=== PATIENT | male | born 1975 | race Caucasian/White ===

== ENCOUNTER 2017-03-10 13:45 | Emergency (ER) | payer BC ==
[2017-03-10] MEDS ORDERED: TETANUS/DIPHTHERIA/PERTUSSIS 0.5 ML SYRINGE IM ONE ×2 (13:57→14:10)
[2017-03-10 13:58] VITALS: BP 141/96
--- NOTE | 2017-03-10 13:58 | ED Physician Documentation ---
PD HPI UPPER EXT INJURY - Stated complaint Stated Complaint: LEFT FINGER LAC - History obtained from History obtained from: Patient - History of Present Illness Location: Other (This is a right-handed gentleman who was working on his truck at home and lacerated the dorsum of the left second finger on an exposed bolt just prior to arrival. Tetanus is unknown. No other injuries.) Review of Systems Constitutional: reports: Reviewed and negative Cardiac: reports: Reviewed and negative Respiratory: reports: Reviewed and negative PD PAST MEDICAL HISTORY - Past Medical History Cardiovascular: Hypertension Respiratory: None Neuro: None Endocrine/Autoimmune: None GI: None : None HEENT: None Psych: Anxiety, Bipolar disorder, ADD/ADHD Musculoskeletal: None Derm: None - Past Surgical History Past Surgical History: Yes - Present Medications Home Medications: Ambulatory Orders Medication Instructions Recorded Confirmed Fluvoxamine Maleate 50 mg PO DAILY 09/10/13 02/26/15 Lisinopril [Zestril] 40 mg PO DAILY 09/10/13 03/10/17 lamoTRIgine [LaMICtal] 350 mg PO DAILY 09/10/13 03/10/17 Cholecalciferol (Vitamin D3) 1,000 mg PO DAILY 02/26/15 02/26/15 [Vitamin D] - Allergies Allergies/Adverse Reactions: Allergies Allergy/AdvReac Type Severity Reaction Status Date / Time aripiprazole [From Abilify] AdvReac Unknown Unknown Verified 03/10/17 14:01 bupropion HCl * AdvReac Unknown Unknown Verified 03/10/17 14:01 [From Wellbutrin] lithium [[place]] AdvReac Unknown Unknown Verified 03/10/17 14:01 - Social History Does the pt smoke?: No Smoking Status: Current every day smoker Does the pt drink ETOH?: No Does the pt have substance abuse?: No - Immunizations Immunizations are current?: Yes - POLST Patient has POLST: No PD ED PE NORMAL - Vitals Vital signs reviewed: Yes - General General: Alert and oriented X 3, No acute distress - Extremities Extremities: Other (There is a 2 cm laceration at the level of the PIP on the dorsal surface of the left second finger with intact extensor tendon strength and normal neurovascular function of the tip.) - Neuro Neuro: Alert and oriented X 3, Normal speech - Psych Psych: Normal mood, Normal affect Results - Vitals Vitals: Vital Signs - 24 hr 03/10/17 13:56 Temperature 36.3 C L Heart Rate 81 Respiratory 18 Rate Blood Pressure 141/96 H O2 Saturation 96 Oxygen O2 Source Room air Procedures - Laceration (location) L 2nd finger Length in cm: 2 Wound type: Linear Neurovascular status: Sensory intact, Motor intact, Vascular intact Tendon involvement: Tendon intact. No: Tendon Injury Anesthesia: Lidocaine 1%, With bicarb Wound Preparation: Chlorhexadine, Irrigated copiously NS Skin layer closure: Nylon, Size #-0 - enter number (5-0), Sutures - enter # (8) Other: Patient tolerated well, No complications, Neurovascular intact, Tetanus booster given Complexity: Simple Departure - Departure Disposition: 01 Home, Self Care Clinical Impression: Finger laceration Qualifiers: Encounter type: initial encounter Qualified Code(s): S61.219A - Laceration without foreign body of unspecified finger without damage to nail, initial encounter Condition: Good Record reviewed to determine appropriate education?: Yes Instructions: ED Laceration Hand Comments: Come back for any signs of infection which would include: Redness, swelling, drainage, increased pain, or fevers. Follow-up with your physician in 14 days for suture removal. Your blood pressure was elevated today on check into the emergency department. This does not mean that you have hypertension, it is a common phenomenon to come to the emergency department and have elevated blood pressure. I recommend that she see her primary care physician within the week to have it rechecked when you are feeling better.
[2017-03-10] MEDS ORDERED: BUFFERED LIDOCAINE 10 ML SYRINGE ONE (14:08)
== END 2017-03-10 14:57 | disposition home or self-care (01) ==
LOC: ED 13:45
DX: S61.210A Laceration without foreign body of right index finger without damage to nail, initial encounter (principal); W45.8XXA Other foreign body or object entering through skin, initial encounter; Y93.89 Activity, other specified; Y92.009 Unspecified place in unspecified non-institutional (private) residence as the place of occurrence of the external cause; Z23 Encounter for immunization; I10 Essential (primary) hypertension; F17.200 Nicotine dependence, unspecified, uncomplicated
CPT/HCPCS: 12001; 90471; 99282; 99283

== ENCOUNTER 2017-06-24 18:28 | Emergency (ER) | payer BC ==
[2017-06-24] MEDS ORDERED: ALBUTEROL NEB 2.5 MG/3 ML INH STA (19:21)
--- NOTE | 2017-06-24 19:23 | ED Physician Documentation ---
PD HPI DYSPNEA - Stated complaint Stated Complaint: DIFF BREATHING,DIZZY - Chief complaint Chief Complaint: Resp - History obtained from History obtained from: Patient - History of Present Illness Timing - onset: Other (Sick for about 5 days with a productive cough and shortness of breath that is worse when he is upright and better when laying flat and at rest. There is some chest pain with coughing but no chest pain without coughing. No pedal edema or calf pain. No recent travel or hemoptysis. No fevers. He was seen in another emergency department 4 days ago and given a prescription for Zithromax, no other prescriptions. He has not improved. He says he did receive a chest x-ray at that time which was negative per him.) Review of Systems Ten Systems: 10 systems reviewed and negative Constitutional: denies: Fever, Chills Throat: denies: Sore throat Cardiac: denies: Chest pain / pressure, Pedal edema, Calf pain Respiratory: reports: Dyspnea, Cough GI: denies: Abdominal Pain PD PAST MEDICAL HISTORY - Past Medical History Cardiovascular: Hypertension Respiratory: None Neuro: None Endocrine/Autoimmune: None GI: None : None HEENT: None Psych: Anxiety, Bipolar disorder, ADD/ADHD Musculoskeletal: None Derm: None - Past Surgical History Past Surgical History: Yes - Present Medications Home Medications: Ambulatory Orders Medication Instructions Recorded Confirmed Fluvoxamine Maleate 50 mg PO DAILY 09/10/13 06/24/17 Lisinopril [Zestril] 40 mg PO DAILY 09/10/13 06/24/17 lamoTRIgine [LaMICtal] 350 mg PO DAILY 09/10/13 06/24/17 Cholecalciferol (Vitamin D3) 1,000 mg PO DAILY 02/26/15 02/26/15 [Vitamin D] Albuterol Sulfate [Proventil Hfa 1 - 2 puffs IH Q4H PRN #1 06/24/17 Inhaler] hfa.aer.ad guaiFENesin/CODEINE [Robitussin AC] 5 - 10 ml PO Q6H PRN #120 ml 06/24/17 predniSONE [Deltasone] 60 mg PO DAILY 5 Days tablet 06/24/17 - Allergies Allergies/Adverse Reactions: Allergies Allergy/AdvReac Type Severity Reaction Status Date / Time aripiprazole [From Abili] AdvReac Unknown Unknown Verified 03/10/17 14:01 bupropion HCl * AdvReac Unknown Unknown Verified 03/10/17 14:01 [From Wellbutrin] lithium [[place]] AdvReac Unknown Unknown Verified 03/10/17 14:01 - Social History Does the pt smoke?: No Smoking Status: Never smoker Does the pt drink ETOH?: No Does the pt have substance abuse?: No - Immunizations Immunizations are current?: Yes - POLST Patient has POLST: No PD ED PE NORMAL - Vitals Vital signs reviewed: Yes - General General: Alert and oriented X 3, Other (Occasional cough) - HEENT HEENT: PERRL, EOMI - Neck Neck: Supple, no meningeal sign, No bony TTP - Cardiac Cardiac: RRR, No murmur - Respiratory Respiratory: Other (Mild expiratory wheezes and bibasilar rhonchi, no focal findings) - Abdomen Abdomen: Soft, Non tender - Derm Derm: No rash - Neuro Neuro: Alert and oriented X 3, Normal speech Results - Vitals Vitals: Vital Signs - 24 hr 06/24/17 06/24/17 06/24/17 18:32 19:01 19:40 Temperature 36.2 C L 37.1 C Heart Rate 81 71 70 Respiratory 24 16 16 Rate Blood Pressure 136/98 H 133/94 H O2 Saturation 98 99 Oxygen O2 Source Room air - EKG (time done) 1936 Rate: Rate (enter#) (66) Rhythm: NSR [place]: LAD Intervals: Normal MD QRS: Normal Ischemia: Normal ST segments Computer interpretation: Agree with computer PD MEDICAL DECISION MAKING - ED course ED course: 41-year-old gentleman with bronchitis apparently. No evidence of PE or ID, negative PERC. EKG nonischemic. Feeling much better after the administration of an albuterol neb here, somewhat shaky after that but he said it was worth it to breathe better. Departure - Departure Disposition: 01 Home, Self Care Clinical Impression: Bronchitis Condition: Good Record reviewed to determine appropriate education?: Yes Instructions: ED Bronchitis Asthmatic Prescriptions: Albuterol Sulfate [Proventil Hfa Inhaler] 1 - 2 puffs IH Q4H PRN #1 hfa.aer.ad PRN Reason: Cough guaiFENesin/CODEINE [Robitussin AC] 5 - 10 ml PO Q6H PRN #120 ml PRN Reason: Cough predniSONE [Deltasone] 60 mg PO DAILY 5 Days tablet Comments: Call your doctor to arrange a follow-up appointment, make the next available appointment. In the interim, return anytime if worse or if new symptoms develop. Your blood pressure was elevated today on check into the emergency department. This does not mean that you have hypertension, it is a common phenomenon to come to the emergency department and have elevated blood pressure. I recommend that you see your primary care physician within the week to have it rechecked when you are feeling better.
[2017-06-24] MEDS ORDERED: ALBUTEROL NEB 2.5 MG/3 ML INH ONE (19:45)
[2017-06-24 20:13] VITALS: BP 136/93
== END 2017-06-24 20:14 | disposition home or self-care (01) ==
LOC: ED 18:28
DX: J40 Bronchitis, not specified as acute or chronic (principal); I10 Essential (primary) hypertension
CPT/HCPCS: 93005; 94640; 99283; 99284; J7613

== ENCOUNTER 2018-06-24 02:47 | Emergency (ER) | payer BC, MEDICAID ==
--- NOTE | 2018-06-24 03:10 | ED Physician Documentation ---
History of Present Illness - Stated complaint Stated Complaint: ELEVATED BP - Chief complaint Chief Complaint: Cardiac - History obtained from History obtained from: Patient - History of Present Illness Timing: Today Pain level max: 3 Pain level now: 0 Improved by: nothing Worsened by: nothing - Additonal information Additional information: Patient is a 42-year-old male with a long-standing history of hypertension. Noticed his blood pressure was higher than usual today, 170/110 at home. He states that he feels like there is a vibration in his head. This has occurred since abruptly running out of his SSRI and not been able to get a refill. Also abruptly stopped his nortriptyline 2 days ago. He denies any chest pain or shortness of breath. No vision changes. No focal numbness or weakness. Review of Systems Constitutional: denies: Fever, Chills Eyes: denies: Decreased vision, Photophobia Ears: denies: Ear pain Nose: denies: Rhinorrhea / runny nose, Congestion Respiratory: denies: Cough GI: denies: Nausea, Vomiting, Diarrhea Skin: denies: Rash Neurologic: denies: Headache PD PAST MEDICAL HISTORY - Past Medical History Cardiovascular: Hypertension Respiratory: None Endocrine/Autoimmune: None GI: None : None HEENT: None Psych: Anxiety, Bipolar disorder, ADD/ADHD Musculoskeletal: None Derm: None - Past Surgical History Past Surgical History: Yes - Present Medications Home Medications: Ambulatory Orders Medication Instructions Recorded Confirmed Fluvoxamine Maleate 50 mg PO DAILY 09/10/13 06/24/17 Lisinopril [Zestril] 40 mg PO DAILY 09/10/13 06/24/17 lamoTRIgine [LaMICtal] 350 mg PO DAILY 09/10/13 06/24/17 Cholecalciferol (Vitamin D3) 1,000 mg PO DAILY 02/26/15 02/26/15 [Vitamin D] Albuterol Sulfate [Proventil Hfa 1 - 2 puffs IH Q4H PRN #1 06/24/17 Inhaler] hfa.aer.ad guaiFENesin/CODEINE [Robitussin AC] 5 - 10 ml PO Q6H PRN #120 ml 06/24/17 predniSONE [Deltasone] 60 mg PO DAILY 5 Days tablet 06/24/17 Fluvoxamine Maleate 150 mg PO DAILY #30 tablet 06/24/18 Nortriptyline HCl 50 mg PO DAILY #10 capsule 06/24/18 - Allergies Allergies/Adverse Reactions: Allergies Allergy/AdvReac Type Severity Reaction Status Date / Time aripiprazole [From Abilify] AdvReac Unknown Unknown Verified 06/24/18 03:00 bupropion HCl * AdvReac Unknown Unknown Verified 06/24/18 03:00 [From Wellbutrin] lithium [[place]] AdvReac Unknown Unknown Verified 06/24/18 03:00 - Social History Does the pt smoke?: No Smoking Status: Never smoker Does the pt drink ETOH?: No Does the pt have substance abuse?: No - Immunizations Immunizations are current?: Yes - POLST Patient has POLST: No PD ED PE NORMAL - Vitals Vital signs reviewed: Yes - General General: Alert and oriented X 3, No acute distress - HEENT HEENT: PERRL, Moist mucous membranes - Neck Neck: Supple, no meningeal sign - Cardiac Cardiac: RRR, Strong equal pulses - Respiratory Respiratory: No respiratory distress, Clear bilaterally - Abdomen Abdomen: Soft, Non tender, Non distended - Derm Derm: Warm and dry - Extremities Extremities: No edema, No calf tenderness / cord - Neuro Neuro: Alert and oriented X 3, dining room busser 2-12 intact, No motor deficit, No sensory deficit, Normal speech - Psych Psych: Normal mood, Normal affect Results - Vitals Vitals: Vital Signs - 24 hr 06/24/18 06/24/18 06/24/18 02:57 03:11 03:16 Temperature 37.0 C Heart Rate 75 70 Respiratory 17 17 Rate Blood Pressure 157/105 H 157/109 H O2 Saturation 98 97 Oxygen O2 Source T-piece - EKG (time done) 0302 Rate: Rate (enter#) (72) Rhythm: NSR [place]: Normal Intervals: Normal [place] QRS: Normal Ischemia: Normal ST segments PD MEDICAL DECISION MAKING - ED course Complexity details: reviewed results, considered differential, d/w patient ED course: Patient is a 42-year-old male with chronic hypertension, blood pressure here is not significantly different from his prior ED visits. More likely that the vibrationary feeling in his head is from abrupt withdrawal of his SSRI and the nortriptyline. Given a dose of nortriptyline here, but his SSRI is not stocked in the hospital. Will rx both for home and follow up with his PCP. Patient counseled regarding signs and symptoms for which I believe and urgent re- evaluation would be necessary. Patient with good understanding of and agreement to plan and is comfortable going home at this time This document was made in part using voice recognition software. While efforts are made to proofread this document, sound alike and grammatical errors may occur. Departure - Departure Disposition: Home, Self Care Clinical Impression: Medication refill Hypertension Qualifiers: Hypertension type: unspecified Qualified Code(s): I10 - Essential (primary) hypertension Condition: Good Instructions: ED HTN Established Follow-Up: Noel Kaufman MD [Primary Care Provider] - Within 1 week Prescriptions: Fluvoxamine Maleate 150 mg PO DAILY #30 tablet Nortriptyline HCl 50 mg PO DAILY #10 capsule Comments: Your prescriptions were sent to [facility]. Follow-up with your doctor for adjustment of your blood pressure medications. Return if you worsen.
[2018-06-24] MEDS: NORTRIPTYLINE 25 MG CAPSULE PO STA (03:18)
[2018-06-24 03:38] VITALS: BP 141/109
== END 2018-06-24 03:40 | disposition home or self-care (01) ==
LOC: ED 02:47
DX: I10 Essential (primary) hypertension (principal)
CPT/HCPCS: 93005; 99283

== ENCOUNTER 2018-09-07 20:16 | Emergency (ER) | payer MEDICAID ==
[2018-09-07 20:22] VITALS: BP 147/103
[2018-09-07] MEDS ORDERED: ACETAMINOPHEN 325 MG TABLET PO STA (20:33)
--- NOTE | 2018-09-07 20:35 | ED Physician Documentation ---
PD HPI URI - Stated complaint Stated Complaint: FLU SYMPTOMS - Chief complaint Chief Complaint: Resp - History obtained from History obtained from: Patient - History of Present Illness Timing - onset: Yesterday Timing details: Gradual onset Associated symptoms: Dry cough, Other (myalgias, fatigue) Contributing factors: Sick contact (Son is sick with similar symptoms.) - Treatment prior to arrival Treatment prior to arrival: Mucinex and DayQuil without relief. - Additional information Additional information: The patient is a 43-year-old male who presents with cough that started yesterday and has become much worse today. He complains of associated fatigue and myalgias. He has associated dyspnea and mild headache. He denies fever, chest pain, sore throat, or GI symptoms. He has taken Mucinex and DayQuil without relief. His son has been sick with similar symptoms. Review of Systems Constitutional: reports: Myalgias, Fatigue. denies: Fever Eyes: denies: Irritation Ears: denies: Ear pain Nose: reports: Sinus pressure / pain Throat: denies: Sore throat Cardiac: denies: Chest pain / pressure Respiratory: reports: Dyspnea, Cough GI: denies: Abdominal Pain, Nausea, Vomiting : denies: Dysuria Skin: denies: Rash Musculoskeletal: denies: Extremity pain Neurologic: reports: Headache (mild) PD PAST MEDICAL HISTORY - Past Medical History Past Medical History: Yes Cardiovascular: Hypertension Respiratory: None Neuro: None Endocrine/Autoimmune: None GI: None : None HEENT: None Psych: Anxiety, Bipolar disorder, ADD/ADHD Musculoskeletal: None Derm: None - Past Surgical History Past Surgical History: Yes - Present Medications Home Medications: Ambulatory Orders Medication Instructions Recorded Confirmed Lisinopril [Zestril] 40 mg PO DAILY 09/10/13 09/07/18 lamoTRIgine [LaMICtal] 350 mg PO DAILY 09/10/13 09/07/18 Cholecalciferol (Vitamin D3) 1,000 mg PO DAILY 02/26/15 09/07/18 [Vitamin D] Fluvoxamine Maleate 150 mg PO DAILY #30 tablet 06/24/18 09/07/18 Nortriptyline HCl 50 mg PO DAILY #10 capsule 06/24/18 09/07/18 Benzonatate [Tessalon Perle] 100 - 200 mg PO TID PRN #30 capsule 09/07/18 Metoprolol Succinate 50 mg PO DAILY 09/07/18 09/07/18 - Allergies Allergies/Adverse Reactions: Allergies Allergy/AdvReac Type Severity Reaction Status Date / Time aripiprazole [From Abilify] AdvReac Unknown Unknown Verified 09/07/18 20:22 bupropion HCl * AdvReac Unknown Unknown Verified 09/07/18 20:22 [From Wellbutrin] lithium [[place]] AdvReac Unknown Unknown Verified 09/07/18 20:22 gabapentin AdvReac Unknown Verified 09/07/18 20:22 - Social History Does the pt smoke?: No Smoking Status: Never smoker Does the pt drink ETOH?: No Does the pt have substance abuse?: No - Immunizations Immunizations are current?: Yes - POLST Patient has POLST: No PD ED PE NORMAL - Vitals Vital signs reviewed: Yes (hypertensive) - General General: Alert and oriented X 3, Well developed/nourished - HEENT HEENT: Atraumatic, Ears normal, Pharynx benign - Neck Neck: No adenopathy, No JVD - Cardiac Cardiac: RRR, No murmur - Respiratory Respiratory: Clear bilaterally - Abdomen Abdomen: Soft, Non tender - Back Back: No CVA TTP - Derm Derm: No rash - Extremities Extremities: No edema, No calf tenderness / cord - Neuro Neuro: Alert and oriented X 3, No motor deficit, Normal speech Results - Vitals Vitals: Vital Signs - 24 hr 09/07/18 20:17 Temperature 36.2 C L Heart Rate 100 Respiratory 17 Rate Blood Pressure 147/103 H O2 Saturation 98 Oxygen O2 Source Room air - Labs Labs: Laboratory Tests 09/07/18 20:33 Influenza A (Rapid) Negative Influenza B (Rapid) Negative PD MEDICAL DECISION MAKING - ED course Complexity details: reviewed results, re-evaluated patient, considered differ ential, d/w patient ED course: The patient's presentation is most consistent with viral upper respiratory infection. His clinical presentation does not suggest meningitis, pneumonitis, otitis media, or acute pharyngitis. Influenza swab is negative. Treatment in the emergency department included Tylenol 650 mg orally, and Tessalon, 100 mg orally. I discussed with him the expected course of illness, symptomatic treatment and outpatient follow-up, as well as potentially worrisome signs or symptoms that should prompt reevaluation in the emergency department. Departure - Departure Disposition: Home, Self Care Clinical Impression: Viral URI with cough Condition: Stable Instructions: ED Upper Resp Infec No Abx Tx Follow-Up: Noel Kaufman MD [Primary Care Provider] - Prescriptions: Benzonatate [Tessalon Perle] 100 - 200 mg PO TID PRN #30 capsule PRN Reason: Cough Comments: Your symptoms are most consistent with a viral upper respiratory infection. Antibiotics are not clinically indicated for this type of viral infection. Treatment should be geared toward managing symptoms: Drink plenty of fluids. Use Tylenol or ibuprofen as needed for fever or discomfort. Wash your hands frequently, and cover your cough. Follow up with your primary physician, or return to the emergency department, if not improving within 1-2 weeks. Return to the emergency department if you develop increasing difficulty breathing, or otherwise worsening symptoms. Discharge Date/Time: 09/07/18 21:00
[2018-09-07] MEDS ORDERED: BENZONATATE 100 MG CAPSULE PO STA (20:53)
== END 2018-09-07 21:00 | disposition home or self-care (01) ==
LOC: ED 20:16
DX: J06.9 Acute upper respiratory infection, unspecified (principal); B34.9 Viral infection, unspecified; I10 Essential (primary) hypertension
CPT/HCPCS: 87275; 87276; 99283; A9270

== ENCOUNTER 2020-12-24 19:01 | Emergency (ER) | payer MEDICAID ==
--- OUTSIDE RECORDS SUMMARY | 2020-12-24 19:04 | EXTERNAL MEDICAL SUMMARY RPT | Continuity of Care Document ---
:1975 Demographics Phone Unavailable Preferred Language Unknown Marital Status Unknown Hindu Affiliation Unknown Race Unknown Ethnic Group Unknown Author Organization [facility] [address] [place] [address] Phone Problems date description facility [id number] [facility] [id number] [facility]
--- OUTSIDE RECORDS SUMMARY | 2020-12-24 19:32 | EXTERNAL MEDICAL SUMMARY RPT | Continuity of Care Document ---
:1975 Demographics Phone Unavailable Preferred Language Unknown Marital Status Unknown Anglican Affiliation Unknown Race Unknown Ethnic Group Unknown Author Organization [facility] [address] [place] [address] Phone Problems date description facility [id number] [facility] [id number] [facility]
--- NOTE | 2020-12-24 20:02 | XRAY Report ---
PROCEDURE: Chest 2 View X-Ray INDICATIONS: cough TECHNIQUE: 2 view(s) of the chest. COMPARISON: 02/26/2015. FINDINGS: Surgical changes and devices: None. Lungs and pleura: No pleural effusions or pneumothorax. Lungs are clear. Mediastinum: Mediastinal contours are normal. Heart size is normal. Bones and chest wall: No suspicious bony abnormalities. Soft tissues appear unremarkable. IMPRESSION: Chest without cardiopulmonary abnormalities. No focal airspace disease. Reviewed by: Barry Childers MD on 12/24/2020 8:01 PM PDT Approved by: Barry Childers MD on 12/24/2020 8:01 PM PDT Station ID: [id number]
[2020-12-24] MEDS ORDERED: guaiFENesin/CODEINE 5 ML UDC PO STA (20:07)
--- NOTE | 2020-12-24 20:09 | ED Physician Documentation ---
PD HPI URI - Stated complaint Stated Complaint: FEVER - Chief complaint Chief Complaint: Resp - History obtained from History obtained from: Patient (2 days with minimally productive hacking cough, burning chest. Had a temperature of 100.8 just prior to arrival. Denies history of tobacco use or lung or heart problems.) Review of Systems Constitutional: reports: Fever. denies: Myalgias Nose: denies: Rhinorrhea / runny nose Throat: denies: Sore throat Respiratory: denies: Dyspnea PD PAST MEDICAL HISTORY - Past Medical History Past Medical History: Yes Cardiovascular: Hypertension Respiratory: Asthma Neuro: None Endocrine/Autoimmune: None GI: None : None HEENT: None Psych: Anxiety, Bipolar disorder, ADD/ADHD Musculoskeletal: None Derm: None - Past Surgical History Past Surgical History: Yes - Present Medications Home Medications: Ambulatory Orders Medication Instructions Recorded Confirmed lamoTRIgine [LaMICtal] 350 mg PO DAILY 09/10/13 12/24/20 lisinopriL [Zestril] 40 mg PO DAILY 09/10/13 12/24/20 Cholecalciferol (Vitamin D3) 1,000 mg PO DAILY 02/26/15 12/24/20 [Vitamin D] Fluvoxamine Maleate 150 mg PO DAILY #30 tablet 06/24/18 12/24/20 Nortriptyline HCl 50 mg PO DAILY #10 capsule 06/24/18 12/24/20 Metoprolol Succinate 50 mg PO DAILY 09/07/18 12/24/20 Albuterol Sulf [Ventolin Hfa 1 - 2 puffs INH Q4HR PRN #1 inhaler 12/24/20 Inhaler] guaiFENesin/CODEINE [Robitussin AC] 5 - 10 ml PO Q6H PRN #120 ml 12/24/20 - Allergies Allergies/Adverse Reactions: Allergies Allergy/AdvReac Type Severity Reaction Status Date / Time aripiprazole [From Abilify] AdvReac Unknown Unknown Verified 12/24/20 19:23 bupropion HCl * AdvReac Unknown Unknown Verified 12/24/20 19:23 [From Wellbutrin] lithium [[place]] AdvReac Unknown Unknown Verified 12/24/20 19:23 gabapentin AdvReac Unknown Verified 12/24/20 19:23 - Social History Does the pt smoke?: No Smoking Status: Never smoker Does the pt drink ETOH?: No Does the pt have substance abuse?: No - Immunizations Immunizations are current?: Yes - POLST Patient has POLST: No PD ED PE NORMAL - Vitals Vital signs reviewed: Yes - General General: Alert and oriented X 3 (Frequent bronchitic coughing) - HEENT HEENT: Pharynx benign - Respiratory Respiratory: No respiratory distress, Clear bilaterally - Neuro Neuro: Alert and oriented X 3, Normal speech Results - Vitals Vitals: Vital Signs - 24 hr 12/24/20 19:20 Temperature 37.5 C Heart Rate 71 Respiratory 20 Rate Blood Pressure 146/82 H O2 Saturation 98 Oxygen O2 Source Room air - Rads (name of study) 2 view chest x-ray Radiology: EMP read contemporaneously (Unremarkable) Departure - Departure Disposition: 01 Home, Self Care Clinical Impression: Viral bronchitis Condition: Good Record reviewed to determine appropriate education?: Yes Instructions: ED Viral Syndrome Prescriptions: Albuterol Sulf [Ventolin Hfa Inhaler] 1 - 2 puffs INH Q4HR PRN #1 inhaler PRN Reason: Shortness Of Air/Wheezing guaiFENesin/CODEINE [Robitussin AC] 5 - 10 ml PO Q6H PRN #120 ml PRN Reason: Cough Comments: No evidence of bacterial illness such as bacterial bronchitis or pneumonia. Chest x-ray is clear. Illness should resolve on its own without specific treatments but the albuterol and codeine should help with your symptoms. Return for new or worsening symptoms. Follow-up with your doctor next week for recheck.
[2020-12-24 20:20] VITALS: BP 120/90
== END 2020-12-24 20:15 | disposition home or self-care (01) ==
LOC: ED 19:01
DX: J20.8 Acute bronchitis due to other specified organisms (principal); I10 Essential (primary) hypertension
CPT/HCPCS: 71046; 99283; A9270

== ENCOUNTER 2021-12-02 18:35 | Emergency (ER) | payer MEDICAID ==
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
--- NOTE | 2021-12-02 19:57 | CT Report ---
PROCEDURE: HEAD WO INDICATIONS: head inj TECHNIQUE: Noncontrast 4.5 mm thick angled axial sections acquired from the foramen magnum to the vertex. For r adiation dose reduction, the following was used: automated exposure control, adjustment of mA and/or kV according to patient size. COMPARISON: None. FINDINGS: Image quality: Excellent. CSF spaces: Basal cisterns are patent. No extra-axial fluid collections. Ventricles are normal in size and shape. Brain: No midline shift. No intracranial masses or hemorrhage. Tyson-white matter interface is norm al. Skull and face: Calvarium and visualized facial bones are intact, without suspicious lesions. Sinuses: Visualized sinuses demonstrate mild pansinus mucosal thickening most prominent in the ethmo id air cells. IMPRESSION: 1. No acute intracranial process. Reviewed by: Lia Prasad MD on 12/02/2021 7:55 PM PDT Approved by: Lia Prasad MD on 12/02/2021 7:55 PM PDT Station ID: [id number]
--- NOTE | 2021-12-02 19:58 | CT Report ---
PROCEDURE: CERVICAL SPINE WO INDICATIONS: head inj TECHNIQUE: Noncontrast 3 mm thick sections acquired from the skull base to the T4 level. Sagittal and coronal r eformats were then constructed. For radiation dose reduction, the following was used: automated exp osure control, adjustment of mA and/or kV according to patient size. COMPARISON: None. FINDINGS: Image quality: Excellent. Bones: No fractures or dislocations. Visualized superior ribs are intact. Soft tissues: Prevertebral soft tissues are normal in thickness. No paravertebral hematomas. No ap ical pneumothoraces. IMPRESSION: Degenerative changes without visualized fracture. Reviewed by: Lia Prasad MD on 12/02/2021 7:57 PM PDT Approved by: Lia Prasad MD on 12/02/2021 7:57 PM PDT Station ID: [id number]
[2021-12-02 20:17] VITALS: BP 147/102
== END 2021-12-02 20:21 | disposition home or self-care (01) ==
LOC: ED 18:35
DX: S09.90XA Unspecified injury of head, initial encounter (principal); S16.1XXA Strain of muscle, fascia and tendon at neck level, initial encounter; W18.31XA Fall on same level due to stepping on an object, initial encounter; Y93.55 Activity, bike riding; I10 Essential (primary) hypertension
CPT/HCPCS: 99282; 99284

== ENCOUNTER 2022-05-10 23:17 | Emergency (ER) | payer OTHER, MEDICAID ==
[2022-05-10 23:36] VITALS: BP 137/97
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
== END 2022-05-11 01:24 | disposition home or self-care (01) ==
LOC: ED 23:17
DX: S83.92XA Sprain of unspecified site of left knee, initial encounter (principal); V29.99XA Rider (driver) (passenger) of other motorcycle injured in unspecified traffic accident, initial encounter; I10 Essential (primary) hypertension
CPT/HCPCS: 99282; 99285

== ENCOUNTER 2022-09-24 15:00 | Outpatient (CLI) | payer MEDICAID | END 2022-09-24 23:59 | disposition critical access hospital (66) | LOC: EMS 15:00 | DX: R51.9 Headache, unspecified (principal); H53.8 Other visual disturbances; I10 Essential (primary) hypertension; R05.9 Cough, unspecified | CPT/HCPCS: A0425; A0429 ==

== ENCOUNTER 2022-09-24 15:48 | Emergency (ER) | payer MEDICAID ==
--- NOTE | 2022-09-24 16:32 | XRAY Report ---
PROCEDURE: Chest 2 View X-Ray INDICATIONS: wet cough with soa TECHNIQUE: 2 views of the chest were acquired. COMPARISON: 12/24/2020 FINDINGS: Surgical changes and devices: None. Lungs and pleura: No pleural effusions or pneumothorax. Lungs are clear. Mediastinum: Mediastinal contours are normal. Heart size is normal. Bones and chest wall: No suspicious bony abnormalities. Soft tissues appear unremarkable. IMPRESSION: No acute cardiopulmonary process demonstrated radiographically. No significant change from 12/24/2020 exam. Reviewed by: Sabino Ledesma MD on 09/24/2022 4:31 PM PST Approved by: Sabino Ledesma MD on 09/24/2022 4:31 PM PST Station ID: [id number]
[2022-09-24 19:45] LABS: MUDS CUTOFF CONCENTRATIONS CUTOFF CONC BELOW:
--- NOTE | 2022-09-24 19:52 | ED Physician Documentation ---
History of Present Illness - Stated complaint Stated Complaint: ANXIETY - Chief complaint Chief Complaint: General - History obtained from History obtained from: Patient - History of Present Illness Pain level max: 6 Pain level now: 4 - Additonal information Additional information: Patient is a 47-year-old male with multiple complaints. He states that he has been feeling generally unwell for the past couple of weeks since he quit using marijuana. He states he has had a cough, congestion, occasional dyspnea. Today he noticed his blood pressure was elevated at home, 190/110 systolic. No chest pain. No current shortness of breath. Occasional nausea. No vomiting. No diarrhea. No constipation. Has had rhinorrhea and congestion. He has felt feverish at times. He has had occasional chills. Review of Systems Constitutional: reports: Chills GI: denies: Vomiting, Constipation, Diarrhea Skin: denies: Rash PD PAST MEDICAL HISTORY - Past Medical History Past Medical History: Yes Cardiovascular: Hypertension Respiratory: Asthma Neuro: None Endocrine/Autoimmune: None GI: None : Benign prostate hypertrophy HEENT: Other Psych: Anxiety, Bipolar disorder, ADD/ADHD, Obsessive compulsive disorder Musculoskeletal: Other Derm: None - Past Surgical History Past Surgical History: Yes General: Other Ortho: Carpal Tunnel surgery - Present Medications Home Medications: Ambulatory Orders Medication Instructions Recorded Confirmed lamoTRIgine [LaMICtal] 350 mg PO DAILY 09/10/13 09/24/22 lisinopriL [Zestril] 40 mg PO DAILY 09/10/13 09/24/22 Fluvoxamine Maleate 150 mg PO DAILY #30 tablet 06/24/18 09/24/22 Albuterol Sulf [Ventolin Hfa 1 - 2 puffs INH Q4HR PRN #1 inhaler 12/24/20 05/10/22 Inhaler] Propranolol ER [Inderal LA] 80 mg PO DAILY 12/02/21 09/24/22 Tamsulosin [Flomax] 0.4 mg PO DAILY 12/02/21 09/24/22 - Allergies Allergies/Adverse Reactions: Allergies Allergy/AdvReac Type Severity Reaction Status Date / Time aripiprazole [From Abilify] AdvReac Unknown Unknown Verified 09/24/22 16:03 bupropion HCl * AdvReac Unknown Unknown Verified 09/24/22 16:03 [From Wellbutrin] lithium [[place]] AdvReac Unknown Unknown Verified 09/24/22 16:03 gabapentin AdvReac Unknown Verified 09/24/22 16:03 - Social History Does the pt smoke?: No Smoking Status: Former smoker Does the pt drink ETOH?: No Does the pt have substance abuse?: Yes Substance Use and Type: Marijuana - Immunizations Immunizations are current?: Yes - POLST Patient has POLST: No PD ED PE NORMAL - Vitals Vital signs reviewed: Yes - General General: Alert and oriented X 3, No acute distress - HEENT HEENT: PERRL, Moist mucous membranes - Neck Neck: Supple, no meningeal sign - Cardiac Cardiac: RRR, Strong equal pulses - Respiratory Respiratory: No respiratory distress, Clear bilaterally - Abdomen Abdomen: Soft, Non tender, Non distended - Derm Derm: Warm and dry - Extremities Extremities: No edema, No calf tenderness / cord - Neuro Neuro: Alert and oriented X 3 - Psych Psych: Normal mood, Normal affect Results - Vitals Vitals: Vital Signs - 24 hr 09/24/22 09/24/22 09/24/22 15:55 18:41 20:00 Temperature 36.9 C Heart Rate 60 62 58 L Respiratory 20 15 14 Rate Blood Pressure 152/95 H 155/96 H 152/87 H O2 Saturation 98 100 100 09/24/22 21:25 Temperature 36.8 C Heart Rate 69 Respiratory 18 Rate Blood Pressure 152/87 H O2 Saturation 100 Oxygen O2 Source Room air - EKG (time done) 2033 Rate: Rate (enter#) (56) Rhythm: NSR [place]: Normal Intervals: Normal [place] QRS: Normal Ischemia: Normal ST segments - Labs Labs: Laboratory Tests 09/24/22 09/24/22 09/24/22 19:36 19:40 19:55 WBC 9.3 RBC 5.00 Hgb 15.0 Hct 45.7 MCV 91.4 MCH 30.0 MCHC 32.8 RDW 12.6 Plt Count 256 MPV 9.3 Neut # (Auto) 5.2 Lymph # (Auto) 2.8 [place] # (Auto) 0.7 Eos # (Auto) 0.4 Baso # (Auto) 0.1 Absolute Nucleated RBC 0.00 Nucleated RBC % 0.0 Sodium Potassium Chloride Carbon Dioxide Anion Gap BUN Creatinine Estimated GFR (MDRD) Glucose Calcium Total Bilirubin AST ALT Alkaline Phosphatase Troponin I High Sens Total Protein Albumin Globulin Albumin/Globulin Ratio Lipase Nasal Adenovirus (PCR) NOT DETECTED Nasal B. parapertussis DNA (PCR) NOT DETECTED Nasal Coronavir 229E PCR NOT DETECTED Nasal Coronavir HKU1 PCR NOT DETECTED Nasal Coronavir NL63 PCR NOT DETECTED Nasal Coronavir OC43 PCR NOT DETECTED Nasal Enterovir/Rhinovir PCR NOT DETECTED Nasal Influenza B PCR NOT DETECTED Nasal Influenza A PCR NOT DETECTED Nasal Parainfluen 1 PCR NOT DETECTED Nasal Parainfluen 2 PCR NOT DETECTED Nasal Parainfluen 3 PCR NOT DETECTED Nasal Parainfluen 4 PCR NOT DETECTED Nasal RSV (PCR) NOT DETECTED Nasal B.pertussis DNA PCR NOT DETECTED Nasal C.pneumoniae (PCR) NOT DETECTED Tato Human Metapneumo PCR NOT DETECTED Nasal M.pneumoniae (PCR) NOT DETECTED Nasal SARS-CoV-2 (PCR) NOT DETECTED Urine Opiates Screen NEGATIVE Ur Oxycodone Screen NEGATIVE Urine Methadone Screen NEGATIVE Ur Propoxyphene Screen NEGATIVE Ur Barbiturates Screen NEGATIVE Ur Tricyclics Screen NEGATIVE Ur Phencyclidine Scrn NEGATIVE Ur Amphetamine Screen NEGATIVE U Methamphetamines Scrn NEGATIVE U Benzodiazepines Scrn NEGATIVE Urine Cocaine Screen NEGATIVE U Cannabinoids Screen POSITIVE H 09/24/22 09/24/22 19:55 19:55 WBC RBC Hgb Hct MCV MCH MCHC RDW Plt Count MPV Neut # (Auto) Lymph # (Auto) [place] # (Auto) Eos # (Auto) Baso # (Auto) Absolute Nucleated RBC Nucleated RBC % Sodium 138 Potassium 3.7 Chloride 101 Carbon Dioxide 26 Anion Gap 11.0 BUN 15 Creatinine 0.9 Estimated GFR (MDRD) 90 Glucose 97 Calcium 10.5 H Total Bilirubin 0.5 AST 20 ALT 28 Alkaline Phosphatase 67 Troponin I High Sens 5.3 Total Protein 7.9 Albumin 3.8 Globulin 4.1 Albumin/Globulin Ratio 0.9 L Lipase 127 H Nasal Adenovirus (PCR) Nasal B. parapertussis DNA (PCR) Nasal Coronavir 229E PCR Nasal Coronavir HKU1 PCR Nasal Coronavir NL63 PCR Nasal Coronavir OC43 PCR Nasal Enterovir/Rhinovir PCR Nasal Influenza B PCR Nasal Influenza A PCR Nasal Parainfluen 1 PCR Nasal Parainfluen 2 PCR Nasal Parainfluen 3 PCR Nasal Parainfluen 4 PCR Nasal RSV (PCR) Nasal B.pertussis DNA PCR Nasal C.pneumoniae (PCR) Tato Human Metapneumo PCR Nasal M.pneumoniae (PCR) Nasal SARS-CoV-2 (PCR) Urine Opiates Screen Ur Oxycodone Screen Urine Methadone Screen Ur Propoxyphene Screen Ur Barbiturates Screen Ur Tricyclics Screen Ur Phencyclidine Scrn Ur Amphetamine Screen U Methamphetamines Scrn U Benzodiazepines Scrn Urine Cocaine Screen U Cannabinoids Screen PD Medical Decision Making - ED course Complexity details: reviewed results, re-evaluated patient, considered differential, d/w patient ED course: Unclear etiology of the patient's symptoms. CBC, ER abdominal panel, respiratory PCR and toxicology screens are negative other than positive for cannabinoids and a mildly elevated lipase. He is on lisinopril and this may be causing the lipase elevation. No abdominal pain or tenderness currently. Tolerating p.o. without difficulty. Patient has a history of hypertension and will continue his medications at home. We will have him follow-up with his doctor for further care. Patient counseled regarding signs and symptoms for which I believe and urgent re-evaluation would be necessary. Patient with good understanding of and agreement to plan and is comfortable going home at this time This document was made in part using voice recognition software. While efforts are made to proofread this document, sound alike and grammatical errors may occur. Departure - Departure Disposition: 01 Home, Self Care Clinical Impression: Hypertension Qualifiers: Hypertension type: unspecified Qualified Code(s): I10 - Essential (primary) hypertension Condition: Good Instructions: ED HTN Established Follow-Up: Your,doctor in 1 week [Other] Comments: You do have a mild increase in your lipase which is a marker of inflammation of your pancreas. If your symptoms continue to worsen, your doctor may want to change you from lisinopril as this can be a cause of pancreatitis. The elevation of your enzyme level is not quite to the level of pancreatitis yet, return for worsening pain, vomiting, fevers or any other new or worrisome changes. Discharge Date/Time: 09/24/22 21:26
[2022-09-24 20:02] LABS: AMPHETAMINE SCREEN,URINE NEGATIVE (NEGATIVE); BARBITURATE SCREEN,UR NEGATIVE (NEGATIVE); BENZODIAZEPINES SCREEN, URINE NEGATIVE (NEGATIVE); COCAINE SCREEN URINE NEGATIVE (NEGATIVE); METHADONE SCREEN, URINE NEGATIVE (NEGATIVE); METHAMPHETAMINES SCREEN, URINE NEGATIVE (NEGATIVE); OPIATE SCREEN, URINE NEGATIVE (NEGATIVE); OXYCODONE SCREEN, URINE NEGATIVE (NEGATIVE); PROPOXYPHENE SCREEN, URINE NEGATIVE (NEGATIVE); THC CANNABINOID SCREEN, URINE POSITIVE (NEGATIVE); TRICYCLIC ANTIDEPRESSANT,URINE NEGATIVE (NEGATIVE)
[2022-09-24 20:04] LABS: BASOPHILS # (AUTO) 0.1 10^3/uL (0.0-0.1); BASOPHILS % (AUTO) 0.8 %; EOSINOPHILS # (AUTO) 0.4 10^3/uL (0.0-0.7); EOSINOPHILS % (AUTO) 4.5 %; HCT - HEMATOCRIT 45.7 % (42.0-52.0); LYMPHOCYTES # (AUTO) 2.8 10^3/uL (1.5-3.5); LYMPHOCYTES % (AUTO) 29.8 %; MEAN CORPUSCULAR HGB CONC 32.8 g/dL (32.0-36.0); MEAN CORPUSCULAR VOLUME 91.4 fL (80.0-94.0); MEAN PLATELET VOLUME 9.3 fL (7.4-11.4); MONOCYTES # (AUTO) 0.7 10^3/uL (0.0-1.0); MONOCYTES % (AUTO) 7.8 %; NEUTROPHILS # (AUTO) 5.2 10^3/uL (1.5-6.6); NEUTROPHILS % (AUTO) 56.7 %; PLT - PLATELET COUNT 256 10^3/uL (130-450); RED CELL DISTRIBUTION WIDTH 12.6 % (12.0-15.0); WHITE BLOOD COUNT 9.3 x10^3/uL (4.8-10.8)
[2022-09-24 20:14] VITALS: BP 152/87
[2022-09-24 20:14] LABS: ALBUMIN 3.8 g/dL (3.2-5.5); ALBUMIN/GLOBULIN RATIO 0.9 (1.0-2.2); BILIRUBIN,TOTAL 0.5 mg/dL (0.2-1.0); CALCIUM 10.5 mg/dL (8.5-10.3); CREATININE 0.9 mg/dL (0.6-1.2); POTASSIUM 3.7 mmol/L (3.5-5.0); TOTAL PROTEIN 7.9 g/dL (6.7-8.2)
[2022-09-24 20:41] LABS: B. PARAPERTUSSIS- RESP PCR PAN NOT DETECTED; B. PERTUSSIS- RESP PCR PANEL NOT DETECTED; C. PNEUMONIAE- RESP PCR PANEL NOT DETECTED; CORONAVIRUS 229E-RESP PCR NOT DETECTED; CORONAVIRUS HKU1-RESP PCR NOT DETECTED; CORONAVIRUS NL63-RESP PCR NOT DETECTED; CORONAVIRUS OC43-RESP PCR NOT DETECTED; HUMAN METAPNEUMOVIRUS NOT DETECTED; INFLUENZA A- RESP PCR PANEL NOT DETECTED; INFLUENZA B - RESP PCR PANEL NOT DETECTED; M. PNEUMONIAE- RESP PCR PANEL NOT DETECTED; PARAINFLUENZA VIRUS 1 NOT DETECTED; PARAINFLUENZA VIRUS 2 NOT DETECTED; PARAINFLUENZA VIRUS 3 NOT DETECTED; PARAINFLUENZA VIRUS 4 NOT DETECTED; RHINOVIRUS/ENTEROVIRUS NOT DETECTED; RSV- RESP PCR PANEL NOT DETECTED; SARS-CoV-2 -RESP PCR PANEL NOT DETECTED
== END 2022-09-24 21:26 | disposition home or self-care (01) ==
LOC: EDUNIT# → ED 15:48
DX: I10 Essential (primary) hypertension (principal); Z79.899 Other long term (current) drug therapy; Z87.891 Personal history of nicotine dependence; Z79.51 Long term (current) use of inhaled steroids; Z20.822 Contact with and (suspected) exposure to COVID-19
CPT/HCPCS: 36415; 80053; 80306; 83690; 84484; 85025; 87633; 93005; 99284

== ENCOUNTER 2022-11-15 09:28 | Emergency (ER) | payer MEDICAID ==
[2022-11-15 10:04] LABS: MUDS CUTOFF CONCENTRATIONS CUTOFF CONC BELOW:
[2022-11-15 10:05] LABS: BILIRUBIN,URINE NEGATIVE (NEGATIVE); GLUCOSE, URINE (UA) NEGATIVE (NEGATIVE); KETONES,URINE (UA) NEGATIVE (NEGATIVE); LEUKOCYTE ESTERASE, URINE NEGATIVE (NEGATIVE); NITRITE,URINE NEGATIVE (NEGATIVE); OCCULT BLOOD,URINE NEGATIVE (NEGATIVE); PROTEIN,URINE NEGATIVE (NEGATIVE); UROBILINOGEN,URINE 0.2 (NORMAL) E.U./dL (NORMAL)
[2022-11-15 10:07] LABS: CLARITY,URINE CLEAR (CLEAR)
[2022-11-15 10:14] LABS: BENZODIAZEPINES SCREEN, URINE POSITIVE (NEGATIVE); THC CANNABINOID SCREEN, URINE POSITIVE (NEGATIVE)
[2022-11-15 10:15] LABS: AMPHETAMINE SCREEN,URINE NEGATIVE (NEGATIVE); BARBITURATE SCREEN,UR NEGATIVE (NEGATIVE); COCAINE SCREEN URINE NEGATIVE (NEGATIVE); METHADONE SCREEN, URINE NEGATIVE (NEGATIVE); METHAMPHETAMINES SCREEN, URINE NEGATIVE (NEGATIVE); OPIATE SCREEN, URINE NEGATIVE (NEGATIVE); OXYCODONE SCREEN, URINE NEGATIVE (NEGATIVE); PROPOXYPHENE SCREEN, URINE NEGATIVE (NEGATIVE); TRICYCLIC ANTIDEPRESSANT,URINE NEGATIVE (NEGATIVE)
[2022-11-15 10:17] LABS: BASOPHILS % (AUTO) 0.5 %; EOSINOPHILS # (AUTO) 0.4 10^3/uL (0.0-0.7); HCT - HEMATOCRIT 42.2 % (42.0-52.0); HGB - HEMOGLOBIN 14.2 g/dL (14.0-18.0); LYMPHOCYTES # (AUTO) 1.6 10^3/uL (1.5-3.5); LYMPHOCYTES % (AUTO) 22.1 %; MEAN CORPUSCULAR HEMOGLOBIN 30.8 pg (27.0-31.0); MEAN CORPUSCULAR HGB CONC 33.6 g/dL (32.0-36.0); MEAN CORPUSCULAR VOLUME 91.5 fL (80.0-94.0); MONOCYTES # (AUTO) 0.6 10^3/uL (0.0-1.0); MONOCYTES % (AUTO) 7.8 %; NEUTROPHILS # (AUTO) 4.7 10^3/uL (1.5-6.6); NEUTROPHILS % (AUTO) 64.3 %; PLT - PLATELET COUNT 211 10^3/uL (130-450); RED BLOOD COUNT 4.61 10^6/uL (4.70-6.10); RED CELL DISTRIBUTION WIDTH 12.7 % (12.0-15.0); WHITE BLOOD COUNT 7.3 x10^3/uL (4.8-10.8)
--- NOTE | 2022-11-15 10:29 | ED Physician Documentation ---
PD HPI MHE - Stated complaint Stated Complaint: MHE - Chief complaint Chief Complaint: MHE - History obtained from History obtained from: Patient - History of Present Illness Primary symptom: Self harm - cut, Psychosis, Manic Timing - onset: How many days ago (5) Contributing factors: Work, Off meds (restarted 2 d ago) Similar symptoms before: Diagnosis (bipolar) Recently seen: Other (seen in urgent care to restart medications) - Additional information Additional information: 47-year-old male with a history of bipolar disorder and hypertension presents to the emergency department feeling that he is having a difficulty with braxton. He reports responding to thoughts that people are having sex at his work by turning them in, and knowing clearly that they were not. He is having difficulty controlling his thoughts. He has not slept in 5 days Review of Systems Constitutional: denies: Fever Eyes: denies: Decreased vision Ears: denies: Ear pain Nose: denies: Congestion Throat: denies: Sore throat Cardiac: denies: Chest pain / pressure, Palpitations Respiratory: denies: Dyspnea, Cough GI: denies: Abdominal Pain, Nausea, Vomiting, Constipation, Diarrhea : denies: Dysuria, Frequency Musculoskeletal: denies: Neck pain, Back pain, Extremity pain Neurologic: denies: Generalized weakness, Focal weakness, Numbness Psychiatric: reports: Delusions, Insomnia PD PAST MEDICAL HISTORY - Past Medical History Cardiovascular: Hypertension Respiratory: Asthma Neuro: None Endocrine/Autoimmune: None GI: None : Benign prostate hypertrophy HEENT: Other Psych: Anxiety, Bipolar disorder, ADD/ADHD, Obsessive compulsive disorder Musculoskeletal: Other Derm: None - Past Surgical History Past Surgical History: Yes General: Other Ortho: Carpal Tunnel surgery - Present Medications Home Medications: Ambulatory Orders Medication Instructions Recorded Confirmed lamoTRIgine [LaMICtal] 350 mg PO DAILY 09/10/13 09/24/22 lisinopriL [Zestril] 40 mg PO DAILY 09/10/13 09/24/22 Fluvoxamine Maleate 150 mg PO DAILY #30 tablet 06/24/18 09/24/22 Albuterol Sulf [Ventolin Hfa 1 - 2 puffs INH Q4HR PRN #1 inhaler 12/24/2005/10 Inhaler] Propranolol ER [Inderal LA] 80 mg PO DAILY 12/02/21 09/24/22 Tamsulosin [Flomax] 0.4 mg PO DAILY 12/02/21 09/24/22 OLANZapine [Zyprexa] 10 mg PO HS #30 tablet 11/15/22 - Allergies Allergies/Adverse Reactions: Allergies Allergy/AdvReac Type Severity Reaction Status Date / Time aripiprazole [From Abilify] AdvReac Unknown Unknown Verified 11/15/22 09:36 bupropion HCl * AdvReac Unknown Unknown Verified 11/15/22 09:36 [From Wellbutrin] lithium [[employer]] AdvReac Unknown Unknown Verified 11/15/22 09:36 gabapentin AdvReac Unknown Verified 11/15/22 09:36 - Social History Does the pt smoke?: No Smoking Status: Former smoker Does the pt drink ETOH?: No Does the pt have substance abuse?: Yes - Immunizations Immunizations are current?: Yes - POLST Patient has POLST: No PD ED PE NORMAL - Vitals Vital signs reviewed: Yes (hypertensive) - General General: Alert and oriented X 3, No acute distress, Well developed/nourished - HEENT HEENT: Atraumatic, PERRL, EOMI - Neck Neck: Supple, no meningeal sign, No bony TTP - Cardiac Cardiac: RRR, No murmur - Respiratory Respiratory: No respiratory distress, Clear bilaterally - Abdomen Abdomen: Soft, Non tender - Back Back: No CVA TTP, No spinal TTP - Derm Derm: Normal color, Warm and dry, No rash - Extremities Extremities: No deformity, No edema - Neuro Neuro: Alert and oriented X 3, utility gelatin maker 2-12 intact, No motor deficit, No sensory deficit, Normal speech Eye Opening: Spontaneous Motor: Obeys Commands Verbal: Oriented GCS Score: 15 - Psych Psych: Normal mood, Normal affect Results - Vitals Vitals: Vital Signs - 24 hr 11/15/22 11/15/22 09:31 15:09 Temperature 36.8 C Heart Rate 90 68 Respiratory 20 18 Rate Blood Pressure 161/112 H 166/110 H O2 Saturation 100 97 Oxygen O2 Source Room air - Labs Labs: Laboratory Tests 11/15/22 11/15/22 11/15/22 09:59 10:13 10:13 WBC 7.3 RBC 4.61 L Hgb 14.2 Hct 42.2 MCV 91.5 MCH 30.8 MCHC 33.6 RDW 12.7 Plt Count 211 MPV 9.0 Neut # (Auto) 4.7 Lymph # (Auto) 1.6 [place] # (Auto) 0.6 Eos # (Auto) 0.4 Baso # (Auto) 0.0 Absolute Nucleated RBC 0.00 Nucleated RBC % 0.0 Sodium 142 Potassium 3.5 Chloride 106 Carbon Dioxide 29 Anion Gap 7.0 BUN 18 Creatinine 1.0 Estimated GFR (MDRD) 79 L Glucose 113 H Calcium 8.9 Total Bilirubin < 0.2 L AST 17 ALT 22 Alkaline Phosphatase 56 Total Protein 7.0 Albumin 4.0 Globulin 3.0 Albumin/Globulin Ratio 1.3 Lipase 48 TSH Urine Color YELLOW Urine Clarity CLEAR Urine pH 6.0 Ur Specific [place] >=1.030 H Urine Protein NEGATIVE Urine Glucose (UA) NEGATIVE Urine Ketones NEGATIVE Urine Occult Blood NEGATIVE Urine Nitrite NEGATIVE Urine Bilirubin NEGATIVE Urine Urobilinogen 0.2 (NORMAL) Ur Leukocyte Esterase NEGATIVE Ur Microscopic Review NOT INDICATED Urine Culture Comments NOT INDICATED Salicylates < 6.0 Urine Opiates Screen NEGATIVE Ur Oxycodone Screen NEGATIVE Urine Methadone Screen NEGATIVE Ur Propoxyphene Screen NEGATIVE Acetaminophen < 10 L Ur Barbiturates Screen NEGATIVE Ur Tricyclics Screen NEGATIVE Ur Phencyclidine Scrn NEGATIVE Ur Amphetamine Screen NEGATIVE U Methamphetamines Scrn NEGATIVE U Benzodiazepines Scrn POSITIVE H Urine Cocaine Screen NEGATIVE U Cannabinoids Screen POSITIVE H Ethyl Alcohol < 5.0 11/15/22 10:13 WBC RBC Hgb Hct MCV MCH MCHC RDW Plt Count MPV Neut # (Auto) Lymph # (Auto) [place] # (Auto) Eos # (Auto) Baso # (Auto) Absolute Nucleated RBC Nucleated RBC % Sodium Potassium Chloride Carbon Dioxide Anion Gap BUN Creatinine Estimated GFR (MDRD) Glucose Calcium Total Bilirubin AST ALT Alkaline Phosphatase Total Protein Albumin Globulin Albumin/Globulin Ratio Lipase TSH 1.34 Urine Color Urine Clarity Urine pH Ur Specific [place] Urine Protein Urine Glucose (UA) Urine Ketones Urine Occult Blood Urine Nitrite Urine Bilirubin Urine Urobilinogen Ur Leukocyte Esterase Ur Microscopic Review Urine Culture Comments Salicylates Urine Opiates Screen Ur Oxycodone Screen Urine Methadone Screen Ur Propoxyphene Screen Acetaminophen Ur Barbiturates Screen Ur Tricyclics Screen Ur Phencyclidine Scrn Ur Amphetamine Screen U Methamphetamines Scrn U Benzodiazepines Scrn Urine Cocaine Screen U Cannabinoids Screen Ethyl Alcohol PD Medical Decision Making - ED course Complexity details: reviewed old records, reviewed results, re-evaluated patient, d/w automation consultant (Telepsych Dr. Dat Fowler recommends Zyprexa 10 mg daily. He recommends reducing the dose if is not tolerated and increasing the dose if its not effective. Recommends 1 month of treatment) Reviewed Lab Results: We reviewed laboratory test with a normal white blood cell count hemoglobin hematocrit and platelets normal electrolytes kidney and liver function normal urinalysis talk screen was positive for benzodiazepine and cannabis no alcohol unremarkable urinalysis normal TSH ED course: 47-year-old Rex Ortiz comes to the emergency department with complaints of inability to sleep and responding to delusions. He has had similar symptoms previously with bipolar affective disorder and he appears hypomanic. The patient is cooperative and voluntary he is not suicidal or homicidal. In the emergency department we asked telepsych to weigh in and Dr. Dat Fowler was able to give advice on medications and recommends a regular dose of Zyprexa for 1 month. Follow-up with primary and psychiatry. The patient is in agreement with this. He will take 2 days off work. Departure - Departure Disposition: 01 Home, Self Care Clinical Impression: Bipolar affective disorder Qualifiers: Active/Remission status: currently active Current bipolar episode type: hypomanic Qualified Code(s): F31.0 - Bipolar disorder, current episode hypomanic Condition: Stable Instructions: ED Manic Depression Follow-Up: [facility] [place] [Provider Group] Prescriptions: OLANZapine [Zyprexa] 10 mg PO HS #30 tablet Comments: Rex, the psychiatrist did read has recommended a medication for you that should help with your sleep and the sleep should help with your symptoms. He is recommending that we place you on Zyprexa 10 mg nightly. If you find that this medication is too much cut in half we find that it is not enough to take as much as 1-1/2. I have given you a number of a clinic in [place] to follow-up with and you will need a referral to a psychiatrist as well. I have E scribed the Zyprexa to the [facility] in [place]. Discharge Date/Time: 11/15/22 15:09
[2022-11-15 10:32] LABS: ACETAMINOPHEN < 10 ug/mL (10-30); ETOH - ETHANOL < 5.0 mg/dL; SALICYLATE < 6.0 mg/dL
[2022-11-15 10:33] LABS: ALBUMIN/GLOBULIN RATIO 1.3 (1.0-2.2); ALKALINE PHOSPHATASE 56 IU/L (42-121); ALT ALANINE AMINOTRANSFERASE 22 IU/L (10-60); AST ASPARTATE AMINOTRANSFERASE 17 IU/L (10-42); BILIRUBIN,TOTAL < 0.2 mg/dL (0.2-1.0); BUN - BLOOD UREA NITROGEN 18 mg/dL (6-20); CALCIUM 8.9 mg/dL (8.5-10.3); CARBON DIOXIDE - CO2 29 mmol/L (21-32); CHLORIDE 106 mmol/L (101-111); GFR - MDRD 79 (>89); GLUCOSE 113 mg/dL (70-100); LIPASE 48 U/L (22-51); POTASSIUM 3.5 mmol/L (3.5-5.0); SODIUM 142 mmol/L (135-145)
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
[2022-11-15 15:10] VITALS: BP 166/110
== END 2022-11-15 15:09 | disposition home or self-care (01) ==
LOC: ED 09:28
DX: F31.64 Bipolar disorder, current episode mixed, severe, with psychotic features (principal); Z87.891 Personal history of nicotine dependence
CPT/HCPCS: 36415; 80053; 80306; 80307; 80320; 80329; 81003; 83690; 84443; 85025; 90834; 99283; 99284; Q3014; 81001; 87086

== ENCOUNTER 2022-12-26 18:49 | Emergency (ER) | payer MEDICAID ==
--- NOTE | 2022-12-26 19:12 | ED Physician Documentation ---
PD HPI CHEST PAIN - Stated complaint Stated Complaint: CHEST PX - Chief complaint Chief Complaint: Cardiac - History obtained from History obtained from: Patient - Additional information Additional information: 47-year-old gentleman with history of hypertension presents with chest pain. Right-sided sharp pain and its been on and off for 3 days but now more constant today. He is short of breath with it. He feels like it is probably anxiety and feels like alprazolam would be helpful for it. He has chronic pedal edema unchanged, no calf pain. No recent travel. PD PAST MEDICAL HISTORY - Past Medical History Cardiovascular: Hypertension Respiratory: Asthma Neuro: None Endocrine/Autoimmune: None GI: None : Benign prostate hypertrophy HEENT: Other Psych: Anxiety, Bipolar disorder, ADD/ADHD, Obsessive compulsive disorder Musculoskeletal: Other Derm: None - Past Surgical History Past Surgical History: Yes General: Other Ortho: Carpal Tunnel surgery - Present Medications Home Medications: Ambulatory Orders Medication Instructions Recorded Confirmed lamoTRIgine [LaMICtal] 350 mg PO DAILY 09/10/13 09/24/22 lisinopriL [Zestril] 40 mg PO DAILY 09/10/13 09/24/22 Fluvoxamine Maleate 150 mg PO DAILY #30 tablet 06/24/18 09/24/22 Albuterol Sulf [Ventolin Hfa 1 - 2 puffs INH Q4HR PRN #1 inhaler 12/24/20 05/10/22 Inhaler] Propranolol ER [Inderal LA] 80 mg PO DAILY 12/02/21 09/24/22 Tamsulosin [Flomax] 0.4 mg PO DAILY 12/02/21 09/24/22 OLANZapine [Zyprexa] 10 mg PO HS #30 tablet 11/15/22 ALPRAZolam [Alprazolam] 0.5 mg PO BID PRN #15 tablet 12/26/22 - Allergies Allergies/Adverse Reactions: Allergies Allergy/AdvReac Type Severity Reaction Status Date / Time aripiprazole [From Abilify] AdvReac Unknown Unknown Verified 12/26/22 19:07 bupropion HCl * AdvReac Unknown Unknown Verified 12/26/22 19:07 [From Wellbutrin] lithium [[place]] AdvReac Unknown Unknown Verified 12/26/22 19:07 gabapentin AdvReac Unknown Verified 12/26/22 19:07 - Social History Does the pt smoke?: No Smoking Status: Former smoker Does the pt drink ETOH?: No Does the pt have substance abuse?: Yes - Immunizations Immunizations are current?: Yes - POLST Patient has POLST: No PD ED PE NORMAL - Vitals Vital signs reviewed: Yes - General General: Alert and oriented X 3, No acute distress - Cardiac Cardiac: RRR, No murmur - Respiratory Respiratory: No respiratory distress, Clear bilaterally - Abdomen Abdomen: Non tender - Extremities Extremities: No edema, No calf tenderness / cord Results - Vitals Vitals: Vital Signs - 24 hr 12/26/22 18:49 Temperature 36.5 C Heart Rate 63 Respiratory 17 Rate Blood Pressure 152/93 H O2 Saturation 96 Oxygen O2 Source Room air - EKG (time done) 1857 EKG releavant findings:: EKG personally interpreted by author of this note. Relevant findings are: Rate: Rate (enter#) (63) Rhythm: NSR Eclectic: Normal Intervals: Normal CO QRS: LVH Ischemia: Normal ST segments - Labs Labs: Laboratory Tests 12/26/22 12/26/22 12/26/22 19:17 19:17 19:17 WBC 6.3 RBC 4.42 L Hgb 13.5 L Hct 39.4 L MCV 89.1 MCH 30.5 MCHC 34.3 RDW 12.6 Plt Count 210 MPV 9.1 Neut # (Auto) 3.2 Lymph # (Auto) 2.1 [place] # (Auto) 0.6 Eos # (Auto) 0.3 Baso # (Auto) 0.1 Absolute Nucleated RBC 0.00 Nucleated RBC % 0.0 Sodium 142 Potassium 3.4 L Chloride 104 Carbon Dioxide 28 Anion Gap 10.0 BUN 19 Creatinine 1.1 Estimated GFR (MDRD) 71 L Glucose 89 Calcium 8.7 Total Bilirubin 0.5 AST 23 ALT 26 Alkaline Phosphatase 49 Troponin I High Sens 7.1 Total Protein 7.0 Albumin 3.8 Globulin 3.2 Albumin/Globulin Ratio 1.2 Lipase 36 - Rads (name of study) Single view chest x-ray is unremarkable Relevant Findings:: Final report received, EMP independent interpretation of test PD Medical Decision Making - ED course ED course: 47-year-old gentleman with history of hypertension presents with atypical 3 days of intermittent chest pain now more constant today with negative EKG and biomarkers. Normal chest x-ray. He feels like his anxiety and requests by name a prescription for alprazolam. Departure - Departure Disposition: 01 Home, Self Care Clinical Impression: Chest pain Qualifiers: Chest pain type: unspecified Qualified Code(s): R07.9 - Chest pain, unspecified Condition: Good Record reviewed to determine appropriate education?: Yes Instructions: ED Chest Pain Atypical Unkn Cause Prescriptions: ALPRAZolam [Alprazolam] 0.5 mg PO BID PRN #15 tablet PRN Reason: Anxiety Comments: If pain worsens or changes please return immediately for reevaluation. Follow- up with your primary care physician for recheck, possible further testing, call for next available appointment. Further prescriptions for alprazolam should come from him or her. [facility] [place]
[2022-12-26 19:23] LABS: BASOPHILS # (AUTO) 0.1 10^3/uL (0.0-0.1); BASOPHILS % (AUTO) 0.9 %; EOSINOPHILS # (AUTO) 0.3 10^3/uL (0.0-0.7); EOSINOPHILS % (AUTO) 5.1 %; HCT - HEMATOCRIT 39.4 % (42.0-52.0); HGB - HEMOGLOBIN 13.5 g/dL (14.0-18.0); LYMPHOCYTES # (AUTO) 2.1 10^3/uL (1.5-3.5); LYMPHOCYTES % (AUTO) 32.4 %; MEAN CORPUSCULAR HEMOGLOBIN 30.5 pg (27.0-31.0); MEAN CORPUSCULAR HGB CONC 34.3 g/dL (32.0-36.0); MEAN CORPUSCULAR VOLUME 89.1 fL (80.0-94.0); MEAN PLATELET VOLUME 9.1 fL (7.4-11.4); MONOCYTES # (AUTO) 0.6 10^3/uL (0.0-1.0); MONOCYTES % (AUTO) 10.1 %; NEUTROPHILS # (AUTO) 3.2 10^3/uL (1.5-6.6); NEUTROPHILS % (AUTO) 51.2 %; PLT - PLATELET COUNT 210 10^3/uL (130-450); RED BLOOD COUNT 4.42 10^6/uL (4.70-6.10); RED CELL DISTRIBUTION WIDTH 12.6 % (12.0-15.0); WHITE BLOOD COUNT 6.3 x10^3/uL (4.8-10.8)
[2022-12-26 19:37] LABS: ALBUMIN 3.8 g/dL (3.2-5.5); ALBUMIN/GLOBULIN RATIO 1.2 (1.0-2.2); BILIRUBIN,TOTAL 0.5 mg/dL (0.2-1.0); CALCIUM 8.7 mg/dL (8.5-10.3); CREATININE 1.1 mg/dL (0.6-1.2); POTASSIUM 3.4 mmol/L (3.5-5.0)
--- NOTE | 2022-12-26 19:38 | XRAY Report ---
PROCEDURE: Chest 1 View X-Ray INDICATIONS: Chest Pain TECHNIQUE: One view of the chest was acquired. COMPARISON: None. FINDINGS: Surgical changes and devices: None. Lungs and pleura: No pleural effusions or pneumothorax. Lungs are clear. Mediastinum: Mediastinal contours appear normal. Heart size is normal. Bones and chest wall: No suspicious bony lesions. Overlying soft tissues appear unremarkable. IMPRESSION: No acute cardiopulmonary process. Reviewed by: Christopher Cota on 12/26/2022 7:37 PM PDT Approved by: Christopher Cota on 12/26/2022 7:37 PM PDT Station ID: [id number]
[2022-12-26 20:04] VITALS: BP 153/100
== END 2022-12-26 20:03 | disposition home or self-care (01) ==
LOC: ED 18:49
DX: R07.9 Chest pain, unspecified (principal); Z87.891 Personal history of nicotine dependence
CPT/HCPCS: 36415; 80053; 83690; 84484; 85025; 93005; 99284

== ENCOUNTER 2023-02-24 16:38 | Emergency (ER) | payer MEDICAID ==
[2023-02-24 17:26] VITALS: BP 157/90
[2023-02-24 17:34] LABS: BASOPHILS % (AUTO) 0.6 %; EOSINOPHILS # (AUTO) 0.3 10^3/uL (0.0-0.7); EOSINOPHILS % (AUTO) 4.3 %; HCT - HEMATOCRIT 39.5 % (42.0-52.0); HGB - HEMOGLOBIN 13.7 g/dL (14.0-18.0); LYMPHOCYTES # (AUTO) 1.9 10^3/uL (1.5-3.5); LYMPHOCYTES % (AUTO) 26.3 %; MEAN CORPUSCULAR HEMOGLOBIN 30.6 pg (27.0-31.0); MEAN CORPUSCULAR HGB CONC 34.7 g/dL (32.0-36.0); MEAN CORPUSCULAR VOLUME 88.4 fL (80.0-94.0); MEAN PLATELET VOLUME 8.9 fL (7.4-11.4); MONOCYTES # (AUTO) 0.7 10^3/uL (0.0-1.0); MONOCYTES % (AUTO) 9.5 %; NEUTROPHILS # (AUTO) 4.2 10^3/uL (1.5-6.6); NEUTROPHILS % (AUTO) 58.9 %; PLT - PLATELET COUNT 210 10^3/uL (130-450); RED BLOOD COUNT 4.47 10^6/uL (4.70-6.10); RED CELL DISTRIBUTION WIDTH 12.7 % (12.0-15.0); WHITE BLOOD COUNT 7.2 x10^3/uL (4.8-10.8)
--- NOTE | 2023-02-24 17:44 | ED Physician Documentation ---
PD HPI MHE - Stated complaint Stated Complaint: BIPOLAR CYCLE - Chief complaint Chief Complaint: MHE - History obtained from History obtained from: Patient - History of Present Illness Pain level max: 0 Pain level now: 0 - Additional information Additional information: Patient is a 47-year-old male who presents to the emergency department with feelings of increasing braxton. He states he ran out of his olanzapine about a week ago and is requesting a refill. Also ran out of his Xanax. He does not feel suicidal or homicidal. Review of Systems Constitutional: denies: Fever, Chills GI: denies: Nausea, Vomiting, Diarrhea Skin: denies: Rash Musculoskeletal: denies: Neck pain, Back pain Neurologic: denies: Headache PD PAST MEDICAL HISTORY - Past Medical History Cardiovascular: Hypertension Respiratory: Asthma Neuro: None Endocrine/Autoimmune: None GI: None : Benign prostate hypertrophy HEENT: Other Psych: Anxiety, Bipolar disorder, ADD/ADHD, Obsessive compulsive disorder Musculoskeletal: Other Derm: None - Past Surgical History Past Surgical History: Yes General: Other Ortho: Carpal Tunnel surgery - Present Medications Home Medications: Ambulatory Orders Medication Instructions Recorded Confirmed lamoTRIgine [LaMICtal] 350 mg PO DAILY 09/10/13 02/24/23 lisinopriL [Zestril] 40 mg PO DAILY 09/10/13 02/24/23 Fluvoxamine Maleate 150 mg PO DAILY #30 tablet 06/24/18 02/24/23 Albuterol Sulf [Ventolin Hfa 1 - 2 puffs INH Q4HR PRN #1 inhaler 12/24/20 02/24/23 Inhaler] Propranolol ER [Inderal LA] 80 mg PO DAILY 12/02/21 02/24/23 Tamsulosin [Flomax] 0.4 mg PO DAILY 12/02/21 02/24/23 OLANZapine [Zyprexa] 10 mg PO HS #30 tablet 11/15/22 02/24/23 ALPRAZolam [Alprazolam] 0.5 mg PO BID PRN #15 tablet 12/26/22 02/24/23 ALPRAZolam [Xanax] 0.25 mg PO BID PRN #14 tablet 02/24/23 Meloxicam 15 mg PO DAILY 02/24/23 02/24/23 OLANZapine [Olanzapine] 10 mg PO QPM #60 tablet 02/24/23 - Allergies Allergies/Adverse Reactions: Allergies Allergy/AdvReac Type Severity Reaction Status Date / Time aripiprazole [From Abilify] AdvReac Unknown Unknown Verified 02/24/23 17:21 bupropion HCl * AdvReac Unknown Unknown Verified 02/24/23 17:21 [From Wellbutrin] lithium [[place]] AdvReac Unknown Unknown Verified 02/24/23 17:21 gabapentin AdvReac Unknown Verified 02/24/23 17:21 - Social History Does the pt smoke?: No Smoking Status: Former smoker Does the pt drink ETOH?: No Does the pt have substance abuse?: Yes - Immunizations Immunizations are current?: Yes - POLST Patient has POLST: No PD ED PE NORMAL - Vitals Vital signs reviewed: Yes - General General: Alert and oriented X 3, No acute distress - HEENT HEENT: Moist mucous membranes - Neck Neck: Supple, no meningeal sign - Cardiac Cardiac: RRR - Respiratory Respiratory: No respiratory distress, Clear bilaterally - Derm Derm: Warm and dry - Neuro Neuro: Alert and oriented X 3 Results - Vitals Vitals: Vital Signs - 24 hr 02/24/23 17:15 Temperature 98.2 C H Heart Rate 71 Respiratory 15 Rate Blood Pressure 157/90 H O2 Saturation 97 Oxygen O2 Source Room air - Labs Labs: Laboratory Tests 02/24/23 02/24/23 02/24/23 17:28 17:28 17:28 WBC 7.2 RBC 4.47 L Hgb 13.7 L Hct 39.5 L MCV 88.4 MCH 30.6 MCHC 34.7 RDW 12.7 Plt Count 210 MPV 8.9 Neut # (Auto) 4.2 Lymph # (Auto) 1.9 [place] # (Auto) 0.7 Eos # (Auto) 0.3 Baso # (Auto) 0.0 Absolute Nucleated RBC 0.00 Nucleated RBC % 0.0 Sodium 140 Potassium 3.6 Chloride 105 Carbon Dioxide 29 Anion Gap 6.0 BUN 24 H Creatinine 1.0 Estimated GFR (MDRD) 79 L Glucose 120 H Calcium 9.4 Magnesium 1.8 Total Bilirubin 0.3 AST 22 ALT 22 Alkaline Phosphatase 65 Total Creatine Kinase 624 H Total Protein 7.2 Albumin 4.2 Globulin 3.0 Albumin/Globulin Ratio 1.4 Lipase 105 H TSH 1.26 Salicylates < 1.5 Acetaminophen < 0.1 Ethyl Alcohol < 10.0 PD Medical Decision Making - ED course Complexity details: considered differential, d/w patient ED course: Patient is out of his olanzapine and xanax. Requesting refills. Contracts for safety. Does not feel that he needs hospitalization. We will prescribe these medications for him and have him follow-up closely with his doctor for further care. Patient does not feel manic currently. Feels safe at home. Patient counseled regarding signs and symptoms for which I believe and urgent re- evaluation would be necessary. Patient with good understanding of and agreement to plan and is comfortable going home at this time This document was made in part using voice recognition software. While efforts are made to proofread this document, sound alike and grammatical errors may occur. Departure - Departure Disposition: 01 Home, Self Care Clinical Impression: Bipolar 1 disorder Condition: Good Instructions: ED Manic Depression Follow-Up: Shantelle Mcdonald ARNP [Provider Admit Priv/Credential] - Within 1 week Prescriptions: OLANZapine [Olanzapine] 10 mg PO QPM #60 tablet ALPRAZolam [Xanax] 0.25 mg PO BID PRN #14 tablet PRN Reason: Anxiety Comments: Your prescriptions were sent to [facility] in [place]. Please follow-up with your doctor this week for further care. Please return if you worsen. Return if you are feeling increasingly manic, suicidal or homicidal. Crisis Line and is available to talk to someone [email or web address] is also available to chat with someone online if you prefer. There are also many resources on this website and apps for your phone to help with your mental health You can also text the word START to [phone] to chat with someome via text. Forms: PCP List Discharge Date/Time: 02/24/23 17:57
[2023-02-24 17:48] LABS: ALBUMIN 4.2 g/dL (3.2-5.5); ALBUMIN/GLOBULIN RATIO 1.4 (1.0-2.2); ALKALINE PHOSPHATASE 65 IU/L (42-121); ALT ALANINE AMINOTRANSFERASE 22 IU/L (10-60); AST ASPARTATE AMINOTRANSFERASE 22 IU/L (10-42); BILIRUBIN,TOTAL 0.3 mg/dL (0.2-1.0); BUN - BLOOD UREA NITROGEN 24 mg/dL (6-20); CALCIUM 9.4 mg/dL (8.5-10.3); CARBON DIOXIDE - CO2 29 mmol/L (21-32); CHLORIDE 105 mmol/L (101-111); CK- CREATINE KINASE 624 IU/L (30-223); ETOH - ETHANOL < 10.0 mg/dL; GFR - MDRD 79 (>89); GLUCOSE 120 mg/dL (74-104); LIPASE 105 U/L (11-82); MAGNESIUM 1.8 mg/dL (1.7-2.3); POTASSIUM 3.6 mmol/L (3.5-4.5); SODIUM 140 mmol/L (135-145); TOTAL PROTEIN 7.2 g/dL (6.4-8.9)
[2023-02-24 17:55] LABS: SALICYLATE < 1.5 mg/dL
[2023-02-24 17:57] LABS: ACETAMINOPHEN < 0.1 ug/mL
== END 2023-02-24 17:57 | disposition home or self-care (01) ==
LOC: ED 16:38
DX: Z76.0 Encounter for issue of repeat prescription (principal); T42.4X6A Underdosing of benzodiazepines, initial encounter; F31.9 Bipolar disorder, unspecified; Z91.138 Patient's unintentional underdosing of medication regimen for other reason; Z87.891 Personal history of nicotine dependence
CPT/HCPCS: 36415; 80053; 80307; 80320; 80329; 82550; 83690; 83735; 84443; 85025; 99283

== ENCOUNTER 2023-07-26 17:29 | Emergency (ER) | payer MEDICAID ==
[2023-07-26] MEDS ORDERED: PROPARACAINE 0.5% OPHTH DROPS 15 ML EACHEYE STA (18:26)
--- NOTE | 2023-07-26 18:46 | ED Physician Documentation ---
PD HPI OPHTHO - Stated complaint Stated Complaint: RT EYE BLURRY VISION - Chief complaint Chief Complaint: Heent - History obtained from History obtained from: Patient - Additional information Additional information: 47-year-old male with history of "macular hole" 30 years ago, hypertension, bipolar disorder presents by private vehicle from home for right-sided vision changes. Patient states that 4 days ago he noticed a "hole" in his vision that has gradually expanded. He states that he is able to see colors, movement, light, shapes, however his fine vision is completely gone and he can barely see anything out of his right eye. He tried to call the [facility] [place], who referred him to the ER. He states it has been multiple years since his last eye exam or eyeglasses prescription change. Denies trauma, eye pain Review of Systems Constitutional: denies: Fever, Chills Eyes: reports: Loss of vision, Decreased vision. denies: Photophobia, Discharge, Irritation Ears: denies: Loss of hearing, Ear pain, Drainage/discharge Cardiac: denies: Chest pain / pressure, Palpitations, Calf pain Respiratory: denies: Dyspnea, Cough, Wheezing PD PAST MEDICAL HISTORY - Past Medical History Past Medical History: Yes Cardiovascular: Hypertension Respiratory: Asthma Neuro: None Endocrine/Autoimmune: None GI: None : Benign prostate hypertrophy HEENT: Other Psych: Anxiety, Bipolar disorder, ADD/ADHD, Obsessive compulsive disorder Musculoskeletal: Other Derm: None Other Past Medical History: macular hole in Rt. eye x 5 yrs. - Past Surgical History Past Surgical History: Yes General: Other Ortho: Carpal Tunnel surgery - Present Medications Home Medications: Ambulatory Orders Medication Instructions Recorded Confirmed lamoTRIgine [LaMICtal] 350 mg PO DAILY 09/10/13 02/24/23 lisinopriL [Zestril] 40 mg PO DAILY 09/10/13 02/24/23 Fluvoxamine Maleate 150 mg PO DAILY #30 tablet 06/24/18 02/24/23 Albuterol Sulf [Ventolin Hfa 1 - 2 puffs INH Q4HR PRN #1 inhaler 12/24/20 02/24/23 Inhaler] Propranolol ER [Inderal LA] 80 mg PO DAILY 12/02/21 02/24/23 Tamsulosin [Flomax] 0.4 mg PO DAILY 12/02/21 02/24/23 OLANZapine [Zyprexa] 10 mg PO HS #30 tablet 11/15/22 02/24/23 ALPRAZolam [Alprazolam] 0.5 mg PO BID PRN #15 tablet 12/26/22 02/24/23 ALPRAZolam [Xanax] 0.25 mg PO BID PRN #14 tablet 02/24/23 Meloxicam 15 mg PO DAILY 02/24/23 02/24/23 OLANZapine [Olanzapine] 10 mg PO QPM #60 tablet 02/24/23 - Allergies Allergies/Adverse Reactions: Allergies Allergy/AdvReac Type Severity Reaction Status Date / Time aripiprazole [From Abilify] AdvReac Unknown Unknown Verified 07/26/23 17:37 bupropion HCl * AdvReac Unknown Unknown Verified 07/26/23 17:37 [From Wellbutrin] lithium [[place]] AdvReac Unknown Unknown Verified 07/26/23 17:37 gabapentin AdvReac Unknown Verified 07/26/23 17:37 - Social History Does the pt smoke?: No Smoking Status: Never smoker Does the pt drink ETOH?: No Does the pt have substance abuse?: Yes - Immunizations Immunizations are current?: Yes - POLST Patient has POLST: No PD ED PE NORMAL - Vitals Vital signs reviewed: Yes - General General: Alert and oriented X 3, No acute distress, Well developed/nourished - HEENT HEENT: Atraumatic, PERRL, EOMI - Neck Neck: Supple, no meningeal sign - Cardiac Cardiac: RRR - Respiratory Respiratory: No respiratory distress, Clear bilaterally - Abdomen Abdomen: Soft, Non tender - Derm Derm: Normal color, Warm and dry, No rash - Extremities Extremities: No deformity, No tenderness to palpate, Normal ROM s pain, No edema - Neuro Neuro: Alert and oriented X 3, cabinet worker 2-12 intact, No motor deficit, Normal speech - Psych Psych: Normal mood, Normal affect Results - Vitals Vitals: Vital Signs - 24 hr 07/26/23 07/26/23 07/26/23 17:37 18:38 18:50 Temperature 36.8 C Heart Rate 71 63 66 Respiratory 16 18 18 Rate Blood Pressure 140/83 H 159/83 H 145/93 H O2 Saturation 96 99 98 Oxygen O2 Source Room air PD Medical Decision Making - ED course Complexity details: reviewed old records, reviewed results, re-evaluated patient , considered differential, d/w patient, d/w wallpaper consultant ED course: Progressive vision loss over 4 days. Patient's description of vision loss seems macular since it is a "hole" that is opened up in his vision but he still has peripheral capabilities. Pupils are equal and reactive bilaterally, there is negative fluorescein uptake bilaterally, IOP is 20 OD and 21 OS. Call placed to [facility] ophthalmology, I spoke with Dr. Morgan, who stated that this did not need to be emergently transferred, but patient could be urgently seen in clinic and gave an available appointment on July 30 at 1 PM at the [facility]. He stated that they would be able to assess the macula and determine if surgery needed to be performed or if this could be managed conservatively. No other interventions are necessary at this time. Vision recovery uncertain until full exam can be completed on 07/30. I discussed all of this with the patient, I emphasized the need for ophthalmology follow-up and provided the doctor's name, appointment time, appointment date, and number of the [facility]. Patient stated that he would make sure that he makes his appointment as he does not want to lose his vision and wants to do everything possible to save it. Departure - Departure Disposition: 01 Home, Self Care Clinical Impression: Macular hole Qualifiers: Laterality: right Qualified Code(s): H35.341 - Macular cyst, hole, or pseudohole, right eye Condition: Stable Instructions: Macular Degeneration Age Related Comments: DR MORGAN MONDAY 07/30 1PM [facility] [phone] Forms: PCP List Discharge Date/Time: 07/26/23 18:50
[2023-07-26 18:54] VITALS: BP 145/93; O2SAT 98
== END 2023-07-26 18:50 | disposition home or self-care (01) ==
LOC: ED 17:29
DX: H35.341 Macular cyst, hole, or pseudohole, right eye (principal)
CPT/HCPCS: 99282; 99283; J3490

== ENCOUNTER 2023-08-26 12:54 | Outpatient (CLI) | payer MEDICAID ==
[2023-08-26 18:14] LABS: BASOPHILS # (AUTO) 0.1 10^3/uL (0.0-0.1); BASOPHILS % (AUTO) 0.7 %; EOSINOPHILS # (AUTO) 0.3 10^3/uL (0.0-0.7); EOSINOPHILS % (AUTO) 3.7 %; HCT - HEMATOCRIT 46.6 % (42.0-52.0); HGB - HEMOGLOBIN 15.4 g/dL (14.0-18.0); LYMPHOCYTES # (AUTO) 1.8 10^3/uL (1.5-3.5); LYMPHOCYTES % (AUTO) 23.8 %; MEAN CORPUSCULAR HEMOGLOBIN 30.4 pg (27.0-31.0); MEAN CORPUSCULAR VOLUME 92.1 fL (80.0-94.0); MEAN PLATELET VOLUME 9.8 fL (7.4-11.4); MONOCYTES # (AUTO) 0.6 10^3/uL (0.0-1.0); MONOCYTES % (AUTO) 8.3 %; NEUTROPHILS # (AUTO) 4.7 10^3/uL (1.5-6.6); NEUTROPHILS % (AUTO) 63.2 %; PLT - PLATELET COUNT 279 10^3/uL (130-450); RED BLOOD COUNT 5.06 10^6/uL (4.70-6.10); RED CELL DISTRIBUTION WIDTH 12.7 % (12.0-15.0); WHITE BLOOD COUNT 7.4 x10^3/uL (4.8-10.8)
[2023-08-26 18:27] LABS: ALBUMIN 4.3 g/dL (3.2-5.5); ALBUMIN/GLOBULIN RATIO 1.3 (1.0-2.2); ALKALINE PHOSPHATASE 62 IU/L (42-121); ALT ALANINE AMINOTRANSFERASE 22 IU/L (10-60); AST ASPARTATE AMINOTRANSFERASE 18 IU/L (10-42); BILIRUBIN,TOTAL 0.4 mg/dL (0.2-1.0); BUN - BLOOD UREA NITROGEN 16 mg/dL (6-20); CALCIUM 9.4 mg/dL (8.5-10.3); CARBON DIOXIDE - CO2 31 mmol/L (21-32); CHLORIDE 102 mmol/L (101-111); CHOL/HDL RATIO 3.7 (<5.0); CHOLESTEROL 205 mg/dL; CREATININE 0.9 mg/dL (0.6-1.3); GFR - MDRD 89 (>89); GLUCOSE 83 mg/dL (74-104); HDL CHOLESTEROL 55 mg/dL; LDL CHOLESTEROL,CALCULATED 101 mg/dL; LDL/HDL RATIO 1.8 (<3.6); SODIUM 140 mmol/L (135-145); TOTAL PROTEIN 7.7 g/dL (6.4-8.9); TRIGLYCERIDES 244 mg/dL (48-352); VLDL CHOLESTEROL 49 mg/dL
[2023-08-26 19:48] LABS: THYROID STIMULATING HORMONE 1.59 uIU/mL (0.34-5.60)
[2023-08-26 21:09] LABS: ESTIMATED AVERAGE GLUCOSE 105 mg/dL (70-100); HEMOGLOBIN A1c% 5.3 % (4.27-6.07)
== END 2023-08-26 12:55 | disposition home or self-care (01) ==
LOC: LAB.N 12:54
PROVIDERS: ATTEND Nurse Practitioner Family
DX: I10 Essential (primary) hypertension (principal); E66.9 Obesity, unspecified; Z12.5 Encounter for screening for malignant neoplasm of prostate
CPT/HCPCS: 36415; 80050; 80061; 83036; 83721; 84153

== ENCOUNTER 2023-10-18 18:53 | Outpatient (CLI) | payer MEDICAID | END 2023-10-18 18:54 | disposition critical access hospital (66) | LOC: EMS 18:53 | DX: R19.7 Diarrhea, unspecified (principal); R51.9 Headache, unspecified; R05.9 Cough, unspecified; R41.89 Other symptoms and signs involving cognitive functions and awareness; R09.81 Nasal congestion; R50.9 Fever, unspecified; R42 Dizziness and giddiness; R61 Generalized hyperhidrosis | CPT/HCPCS: A0425; A0429; A0999 ==

== ENCOUNTER 2023-10-18 19:14 | Emergency (ER) | payer MEDICAID ==
--- NOTE | 2023-10-18 19:21 | ED Physician Documentation ---
PD HPI FEVER - Stated complaint Stated Complaint: DIARRHEA/MARVIN - History obtained from History obtained from: Patient - Additional information Additional information: 48-year-old gentleman history of hypertension and bipolar disorder has been sick for 3 days with bodyaches, nonproductive cough, 5 episodes of diarrhea, shaking chills but no measured fever. He is also had runny nose, sinus pain and sore throat. Daughter was sick but milder. PD PAST MEDICAL HISTORY - Past Medical History Cardiovascular: Hypertension Respiratory: Asthma Neuro: None Endocrine/Autoimmune: None GI: None : Benign prostate hypertrophy HEENT: Other Psych: Anxiety, Bipolar disorder, ADD/ADHD, Obsessive compulsive disorder Musculoskeletal: Other Derm: None - Past Surgical History Past Surgical History: Yes General: Other Ortho: Carpal Tunnel surgery - Present Medications Home Medications: Ambulatory Orders Medication Instructions Recorded Confirmed lamoTRIgine [LaMICtal] 350 mg PO DAILY 09/10/13 10/18/23 lisinopriL [Zestril] 40 mg PO DAILY 09/10/13 10/18/23 Fluvoxamine Maleate 150 mg PO DAILY #30 tablet 06/24/18 02/24/23 Albuterol Sulf [Ventolin Hfa 1 - 2 puffs INH Q4HR PRN #1 inhaler 12/24/20 02/24/23 Inhaler] Propranolol ER [Inderal LA] 80 mg PO DAILY 12/02/21 10/18/23 Tamsulosin [Flomax] 0.4 mg PO DAILY 12/02/21 10/18/23 OLANZapine [Zyprexa] 10 mg PO HS #30 tablet 11/15/22 02/24/23 ALPRAZolam [Alprazolam] 0.5 mg PO BID PRN #15 tablet 12/26/22 02/24/23 ALPRAZolam [Xanax] 0.25 mg PO BID PRN #14 tablet 02/24/23 Meloxicam 15 mg PO DAILY 02/24/23 02/24/23 OLANZapine [Olanzapine] 10 mg PO QPM #60 tablet 02/24/23 Ibuprofen [Motrin] 800 mg PO Q8H PRN #14 tablet 10/18/23 Oxycodone HCl/Acetaminophen 1 - 2 each PO Q6H PRN #14 tablet 10/18/23 [Percocet 5-325 mg Tablet] - Allergies Allergies/Adverse Reactions: Allergies Allergy/AdvReac Type Severity Reaction Status Date / Time aripiprazole [From Abilify] AdvReac Unknown Unknown Verified 10/18/23 19:44 bupropion HCl * AdvReac Unknown Unknown Verified 10/18/23 19:44 [From Wellbutrin] lithium [[place]] AdvReac Unknown Unknown Verified 10/18/23 19:44 gabapentin AdvReac Unknown Verified 10/18/23 19:44 - Social History Does the pt smoke?: No Smoking Status: Never smoker Does the pt drink ETOH?: No Does the pt have substance abuse?: Yes - Immunizations Immunizations are current?: Yes - POLST Patient has POLST: No PD ED PE NORMAL - Vitals Vital signs reviewed: Yes - General General: Alert and oriented X 3, No acute distress - Neck Neck: Supple, no meningeal sign - Cardiac Cardiac: RRR, No murmur - Respiratory Respiratory: No respiratory distress, Clear bilaterally - Abdomen Abdomen: Non tender - Neuro Neuro: Alert and oriented X 3 Results - Vitals Vitals: Vital Signs - 24 hr 10/18/23 10/18/23 19:17 21:19 Temperature 36.0 C L 36 C L Heart Rate 71 71 Respiratory 15 15 Rate Blood Pressure 142/95 H 142/95 H O2 Saturation 95 95 Oxygen O2 Source Room air - Labs Labs: Laboratory Tests 10/18/23 10/18/23 10/18/23 19:27 19:28 19:28 WBC 6.2 RBC 4.66 L Hgb 14.1 Hct 41.9 L MCV 89.9 MCH 30.3 MCHC 33.7 RDW 12.7 Plt Count 187 MPV 9.4 Neut # (Auto) 5.1 Lymph # (Auto) 0.4 L [place] # (Auto) 0.6 Eos # (Auto) 0.0 Baso # (Auto) 0.0 Absolute Nucleated RBC 0.00 Nucleated RBC % 0.0 Sodium 137 Potassium 3.6 Chloride 102 Carbon Dioxide 27 Anion Gap 8.0 BUN 13 Creatinine 1.0 Estimated GFR (MDRD) 79 L Glucose 108 H Calcium 9.4 Total Bilirubin 0.6 AST 18 ALT 19 Alkaline Phosphatase 59 Total Protein 7.2 Albumin 4.3 Globulin 2.9 Albumin/Globulin Ratio 1.5 Nasal Adenovirus (PCR) NOT DETECTED Nasal B. parapertussis DNA (PCR) NOT DETECTED Nasal Coronavir 229E PCR NOT DETECTED Nasal Coronavir HKU1 PCR DETECTED A Nasal Coronavir NL63 PCR NOT DETECTED Nasal Coronavir OC43 PCR NOT DETECTED Nasal Enterovir/Rhinovir PCR NOT DETECTED Nasal Influ A H1 2009 PCR DETECTED A Nasal Influenza B PCR NOT DETECTED Nasal Parainfluen 1 PCR NOT DETECTED Nasal Parainfluen 2 PCR NOT DETECTED Nasal Parainfluen 3 PCR NOT DETECTED Nasal Parainfluen 4 PCR NOT DETECTED Nasal RSV (PCR) NOT DETECTED Nasal B.pertussis DNA PCR NOT DETECTED Nasal C.pneumoniae (PCR) NOT DETECTED Tato Human Metapneumo PCR NOT DETECTED Nasal M.pneumoniae (PCR) NOT DETECTED Nasal SARS-CoV-2 (PCR) NOT DETECTED - Rads (name of study) Single view chest x-ray is unremarkable Relevant Findings:: Final report received, EMP independent interpretation of test PD Medical Decision Making - ED course ED course: 48-year-old gentleman presents by ambulance for what sounds like a flulike illness with marked by body aches, cough, and some other respiratory complaints. He appears well and nontoxic and there is no evidence of sepsis. Workup in the emergency department demonstrates a CBC with some lymphopenia consistent with a viral syndrome, unremarkable CMP. After the administration of IV fluids, Toradol and Dilaudid he was feeling much better and requested discharge. His [employer] respiratory panel was pending on discharge. Departure - Departure Disposition: 01 Home, Self Care Clinical Impression: Influenza-like illness Condition: Good Record reviewed to determine appropriate education?: Yes Instructions: ED Viral Syndrome Prescriptions: Ibuprofen [Motrin] 800 mg PO Q8H PRN #14 tablet PRN Reason: PAIN &/OR FEVER Oxycodone HCl/Acetaminophen [Percocet 5-325 mg Tablet] 1 - 2 each PO Q6H PRN #14 tablet PRN Reason: pain Comments: You were seen today for what sounds like a flulike illness, with prominent pain related to same. I suspect it probably will end up being influenza, and that gives pretty severe body aches. I gave you some pain medication to take home with you tonight and send a prescription for a couple days more worth to the [facility] [place]. Call your doctor to arrange a follow-up appointment, make the next available appointment. In the interim, return anytime if worse or if new symptoms develop. You have a [employer] respiratory panel pending. You can look it up online at the hospital website at [email or web address] and sign up for the patient hospital portal. I am prescribing a short course of narcotic pain medication for you. These are potentially dangerous and addictive medications that should be used carefully. These medications may constipate you. Take an [id number] stool softener (docusate) twice daily with plenty of water while taking these medications. If you go 24 hours without a bowel movement, take [id number] miralax, per package instructions. Do not drink or drive while taking these medications. If you received narcotic or sedating medications while in the emergency department, do not drive for 24 hours. Store this medication in a safe, secure place and out of reach of children. It is a violation of federal law to give or sell this medication to another person or to use in a manner other than prescribed. The ED will not refill narcotic prescriptions, including prescriptions lost or stolen. To dispose of unwanted medications: 1. [facility] provides a drop box for medication in pill form only (no liquids) 8:00 am to 4:30 p.m. Saturday-Saturday in the lobby of the [facility], [address] [place] [address]. Empty pills into ziplock bag before disposal. Call [phone] for information. 2.[employer] is a free service available to all [facility] residents. Go to [email or web address] Note that many narcotic pain relievers also contain Tylenol/acetaminophen. Please ensure that your total dose of acetaminophen from all sources does not exceed 3 g (3000 mg) per day. Forms: PCP List Discharge Date/Time: 10/18/23 21:20
[2023-10-18] MEDS: SODIUM CHLORIDE 0.9% 1,000 ML IV STA (19:29)
[2023-10-18] MEDS: HYDROmorphone 1 MG/ML CARPUJECT IVP STA (19:34)
[2023-10-18 19:35] LABS: BASOPHILS % (AUTO) 0.3 %; EOSINOPHILS % (AUTO) 0.5 %; HCT - HEMATOCRIT 41.9 % (42.0-52.0); HGB - HEMOGLOBIN 14.1 g/dL (14.0-18.0); LYMPHOCYTES # (AUTO) 0.4 10^3/uL (1.5-3.5); LYMPHOCYTES % (AUTO) 7.1 %; MEAN CORPUSCULAR HEMOGLOBIN 30.3 pg (27.0-31.0); MEAN CORPUSCULAR HGB CONC 33.7 g/dL (32.0-36.0); MEAN CORPUSCULAR VOLUME 89.9 fL (80.0-94.0); MEAN PLATELET VOLUME 9.4 fL (7.4-11.4); MONOCYTES # (AUTO) 0.6 10^3/uL (0.0-1.0); MONOCYTES % (AUTO) 9.8 %; NEUTROPHILS # (AUTO) 5.1 10^3/uL (1.5-6.6); NEUTROPHILS % (AUTO) 82.1 %; PLT - PLATELET COUNT 187 10^3/uL (130-450); RED BLOOD COUNT 4.66 10^6/uL (4.70-6.10); RED CELL DISTRIBUTION WIDTH 12.7 % (12.0-15.0); WHITE BLOOD COUNT 6.2 x10^3/uL (4.8-10.8)
[2023-10-18 19:36] VITALS: BP 142/95; O2SAT 95
[2023-10-18] MEDS: KETOROLAC 15 MG/ML VIAL IVP STA (19:36)
[2023-10-18] MEDS: LOPERAMIDE 2 MG CAPSULE PO STA (19:37)
[2023-10-18 19:52] LABS: ALBUMIN 4.3 g/dL (3.2-5.5); ALBUMIN/GLOBULIN RATIO 1.5 (1.0-2.2); BILIRUBIN,TOTAL 0.6 mg/dL (0.2-1.0); CALCIUM 9.4 mg/dL (8.5-10.3); POTASSIUM 3.6 mmol/L (3.5-4.5); TOTAL PROTEIN 7.2 g/dL (6.4-8.9)
--- NOTE | 2023-10-18 19:56 | XRAY Report ---
PROCEDURE: Chest 1V INDICATIONS: cough TECHNIQUE: One view of the chest was acquired. COMPARISON: Chest x-ray 12/26/2022 FINDINGS: Surgical changes and devices: None. Lungs and pleura: No pleural effusions or pneumothorax. Lungs are clear. Mediastinum: Mediastinal contours appear normal. Heart size is normal. Bones and chest wall: No suspicious bony lesions. Overlying soft tissues appear unremarkable. IMPRESSION: No acute cardiopulmonary process. Reviewed by: Lia Prasad MD on 10/18/2023 7:55 PM PDT Approved by: Lia Prasad MD on 10/18/2023 7:55 PM PDT Station ID: [id number]
[2023-10-18 20:58] LABS: CORONAVIRUS 229E-RESP PCR NOT DETECTED; CORONAVIRUS HKU1-RESP PCR DETECTED; CORONAVIRUS NL63-RESP PCR NOT DETECTED; CORONAVIRUS OC43-RESP PCR NOT DETECTED; HUMAN METAPNEUMOVIRUS NOT DETECTED; RHINOVIRUS/ENTEROVIRUS NOT DETECTED; SARS-CoV-2 -RESP PCR PANEL NOT DETECTED
[2023-10-18 20:59] LABS: B. PARAPERTUSSIS- RESP PCR PAN NOT DETECTED; B. PERTUSSIS- RESP PCR PANEL NOT DETECTED; C. PNEUMONIAE- RESP PCR PANEL NOT DETECTED; INFLUENZA A H1 2009- RESP PCR DETECTED; INFLUENZA B - RESP PCR PANEL NOT DETECTED; M. PNEUMONIAE- RESP PCR PANEL NOT DETECTED; PARAINFLUENZA VIRUS 1 NOT DETECTED; PARAINFLUENZA VIRUS 2 NOT DETECTED; PARAINFLUENZA VIRUS 3 NOT DETECTED; PARAINFLUENZA VIRUS 4 NOT DETECTED; RSV- RESP PCR PANEL NOT DETECTED
[2023-10-18] MEDS: oxyCODONE/ACET 5/325 Prepack 4 PO STA (21:12)
== END 2023-10-18 21:20 | disposition home or self-care (01) ==
LOC: EDUNIT# → ED 19:14
DX: J11.1 Influenza due to unidentified influenza virus with other respiratory manifestations (principal)
CPT/HCPCS: 36415; 71045; 80053; 85025; 87633; 96374; 96375; 99284; 99285; A9270; J1170

== ENCOUNTER 2023-10-22 14:10 | Emergency (ER) | payer MEDICAID ==
--- NOTE | 2023-10-22 15:06 | ED Physician Documentation ---
PD HPI DYSPNEA - Stated complaint Stated Complaint: SOA/LUNGS BURNING - Chief complaint Chief Complaint: Resp - History obtained from History obtained from: Patient - Additional information Additional information: 48-year-old gentleman with a history of bipolar disorder here because of ongoing dyspnea and cough. Patient was seen in the emergency department on the . While here he had a viral panel which was positive for influenza and coronavirus. At that point he had really profound body aches but not a lot of dyspnea, predominant URI symptoms. Now with chest burning cough and wheezing. Has had reactive airway disease in the past. Does not smoke chews Zyns. Subjective fevers not measured. Still having chills. Body much less achy than before but now with more shortness of breath and chest discomfort with coughing. Review of Systems Constitutional: reports: Chills, Sweats Respiratory: reports: Dyspnea, Cough, Wheezing PD PAST MEDICAL HISTORY - Past Medical History Past Medical History: Yes Cardiovascular: Hypertension Respiratory: Asthma Neuro: None Endocrine/Autoimmune: None GI: None : Benign prostate hypertrophy HEENT: Other Psych: Anxiety, Bipolar disorder, ADD/ADHD, Obsessive compulsive disorder Musculoskeletal: Other Derm: None - Past Surgical History Past Surgical History: Yes General: Other Ortho: Carpal Tunnel surgery - Present Medications Home Medications: Ambulatory Orders Medication Instructions Recorded Confirmed lamoTRIgine [LaMICtal] 350 mg PO DAILY 09/10/13 10/22/23 lisinopriL [Zestril] 40 mg PO DAILY 09/10/13 10/22/23 Fluvoxamine Maleate 150 mg PO DAILY #30 tablet 06/24/18 10/22/23 Albuterol Sulf [Ventolin Hfa 1 - 2 puffs INH Q4HR PRN #1 inhaler 12/24/20 10/22/23 Inhaler] Propranolol ER [Inderal LA] 80 mg PO DAILY 12/02/21 10/22/23 Tamsulosin [Flomax] 0.4 mg PO DAILY 12/02/21 10/22/23 OLANZapine [Olanzapine] 10 mg PO QPM #60 tablet 02/24/23 10/22/23 Ibuprofen [Motrin] 800 mg PO Q8H PRN #14 tablet 10/18/23 10/22/23 - Allergies Allergies/Adverse Reactions: Allergies Allergy/AdvReac Type Severity Reaction Status Date / Time aripiprazole [From Abilify] AdvReac Unknown Unknown Verified 10/22/23 14:14 bupropion HCl * AdvReac Unknown Unknown Verified 10/22/23 14:14 [From Wellbutrin] lithium [[place]] AdvReac Unknown Unknown Verified 10/22/23 14:14 gabapentin AdvReac Unknown Verified 10/22/23 14:14 - Social History Does the pt smoke?: No Smoking Status: Never smoker Does the pt drink ETOH?: No Does the pt have substance abuse?: Yes - Immunizations Immunizations are current?: Yes - POLST Patient has POLST: No PD ED PE NORMAL - Vitals Vital signs reviewed: Yes - General General: Alert and oriented X 3, No acute distress, Well developed/nourished - HEENT HEENT: Atraumatic - Neck Neck: Supple, no meningeal sign, No JVD - Cardiac Cardiac: RRR, No murmur - Respiratory Respiratory: Other (Coarse rhonchi and wheezing throughout. No respiratory distress.) - Abdomen Abdomen: Soft, Non tender - Extremities Extremities: No deformity, No edema, No calf tenderness / cord Results - Vitals Vitals: Vital Signs - 24 hr 10/22/23 10/22/23 10/22/23 14:14 15:22 15:28 Temperature 36.7 C Heart Rate 65 63 92 Respiratory 16 20 19 Rate Blood Pressure 128/71 136/79 H O2 Saturation 94 96 10/22/23 16:00 Temperature Heart Rate 65 Respiratory 20 Rate Blood Pressure 146/91 H O2 Saturation 94 Oxygen O2 Source Room air - Rads (name of study) cxr Relevant Findings:: Final report received (Mild perihilar and right infrahilar opacities, suspicious for infection. Consider future imaging ), EMP independent interpretation of test (Apparent right base infiltrate) PD Medical Decision Making - ED course Complexity details: reviewed old records, reviewed results, considered differential (Viral associated cough, pneumonia) ED course: Patient was given a DuoNeb with improvement in his respiratory status. Will treat him as an outpatient with Augmentin and albuterol inhaler. Normal respiratory rate stable oxygenation completely nontoxic and appropriate for outpatient management of his pneumonia. Departure - Departure Clinical Impression: Pneumonia Qualifiers: Pneumonia type: due to unspecified organism Laterality: right Lung location: lower lobe of lung Qualified Code(s): J18.9 - Pneumonia, unspecified organism Condition: Good Forms: PCP List
[2023-10-22] MEDS: IPRATROPIUM/ALBUTEROL 3 ML NEB INH STA (15:24)
--- NOTE | 2023-10-22 16:09 | XRAY Report ---
PROCEDURE: Chest 2V INDICATIONS: cough TECHNIQUE: 2 views of the chest were acquired. COMPARISON: 10/18/2023 FINDINGS: Surgical changes and devices: None. Lungs and pleura: Mild perihilar opacities. Moderate opacity in the right infrahilar region. No drai nable pleural effusions. Mediastinum: Normal heart size Bones and chest wall: Unremarkable IMPRESSION: Mild perihilar and right infrahilar opacities, suspicious for infection. Consider future imaging surv eillance to assess for resolution. Reviewed by: Amador Soares MD on 10/22/2023 4:07 PM PDT Approved by: Amador Soares MD on 10/22/2023 4:07 PM PDT Station ID: [id number]
[2023-10-22 16:13] VITALS: BP 146/91; O2SAT 94
== END 2023-10-22 16:25 | disposition home or self-care (01) ==
LOC: ED 14:10
DX: J18.9 Pneumonia, unspecified organism (principal)
CPT/HCPCS: 94640; 99283; 99284

== ENCOUNTER 2023-10-30 12:46 | Outpatient (CLI) | payer MEDICAID ==
--- NOTE | 2023-10-30 16:34 | XRAY Report ---
PROCEDURE: Chest 2V INDICATIONS: PNEUMONIA TECHNIQUE: 2 views of the chest were acquired. COMPARISON: None. FINDINGS: Surgical changes and devices: None. Lungs and pleura: No pleural effusions or pneumothorax. Lungs are clear. Mediastinum: Mediastinal contours appear normal. Heart size is normal. Bones and chest wall: No suspicious bony lesions. Overlying soft tissues appear unremarkable. IMPRESSION: No acute cardiopulmonary process. Reviewed by: Jose Rojas MD on 10/30/2023 4:33 PM PDT Approved by: Jose Rojas MD on 10/30/2023 4:33 PM PDT Station ID: [id number]
== END 2023-10-30 12:47 | disposition home or self-care (01) ==
LOC: DI.N 12:46
PROVIDERS: ATTEND Nurse Practitioner
DX: J18.9 Pneumonia, unspecified organism (principal)

== ENCOUNTER 2024-01-16 11:58 | Emergency (ER) | payer MEDICAID ==
[2024-01-16 13:00] VITALS: O2SAT 98
--- NOTE | 2024-01-16 13:48 | ED Physician Documentation ---
PD HPI MHE - Stated complaint Stated Complaint: MHE - Chief complaint Chief Complaint: MHE - History obtained from History obtained from: Patient - History of Present Illness Primary symptom: Depression, Anxiety, Aggressive behavior (he noted himself feeling angry without apparent cause. No suicidal nor homocidal ideation. No fights with anyone He has felt this in past with early exac of [place].) Contributing factors: Out of meds (he states he had run out of propranolol. Is still on his lamotrigine and fluvoxamine, amlodipine and lisniopril for BP, tamsulosin. He states taking Trazodone 50 mg at night. Not on olanzepine. Has Rx for Xanax 0.25 mg to take PRN anxiety. Has Rx bottle with him and it seems mostly full.) Review of Systems Constitutional: denies: Fever, Chills Neurologic: denies: Generalized weakness, Focal weakness, Headache PD PAST MEDICAL HISTORY - Past Medical History Past Medical History: Yes Cardiovascular: Hypertension Respiratory: Asthma Neuro: None Endocrine/Autoimmune: None GI: None : Benign prostate hypertrophy HEENT: Other Psych: Anxiety, Bipolar disorder, ADD/ADHD, Obsessive compulsive disorder Musculoskeletal: Other Derm: None - Past Surgical History Past Surgical History: Yes General: Other Ortho: Carpal Tunnel surgery - Present Medications Home Medications: Ambulatory Orders Medication Instructions Recorded Confirmed lamoTRIgine [LaMICtal] 350 mg PO DAILY 09/10/13 10/22/23 lisinopriL [Zestril] 40 mg PO DAILY 09/10/13 10/22/23 Fluvoxamine Maleate 150 mg PO DAILY #30 tablet 06/24/18 10/22/23 Albuterol Sulf [Ventolin Hfa 1 - 2 puffs INH Q4HR PRN #1 inhaler 12/24/20 10/22/23 Inhaler] Propranolol ER [Inderal LA] 80 mg PO DAILY 12/02/21 10/22/23 Tamsulosin [Flomax] 0.4 mg PO DAILY 12/02/21 10/22/23 OLANZapine [Olanzapine] 10 mg PO QPM #60 tablet 02/24/23 10/22/23 Ibuprofen [Motrin] 800 mg PO Q8H PRN #14 tablet 10/18/23 10/22/23 Propranolol HCl 20 mg PO DAILY #30 tablet 01/16/24 amLODIPine [Norvasc] 10 mg PO DAILY 01/16/24 traZODone [Desyrel] 50 - 100 mg PO HS PRN #30 tablet 01/16/24 - Allergies Allergies/Adverse Reactions: Allergies Allergy/AdvReac Type Severity Reaction Status Date / Time aripiprazole [From Abilify] AdvReac Unknown Unknown Verified 01/16/24 12:58 bupropion HCl * AdvReac Unknown Unknown Verified 01/16/24 12:58 [From Wellbutrin] lithium [[place]] AdvReac Unknown Unknown Verified 01/16/24 12:58 gabapentin AdvReac Unknown Verified 01/16/24 12:58 - Social History Does the pt smoke?: No Smoking Status: Never smoker Does the pt drink ETOH?: No Does the pt have substance abuse?: Yes - Immunizations Immunizations are current?: Yes - POLST Patient has POLST: No PD ED PE NORMAL - Vitals Vital signs reviewed: Yes - General General: Alert and oriented X 3, No acute distress, Well developed/nourished - Neck Neck: Supple, no meningeal sign, No adenopathy - Cardiac Cardiac: RRR, No murmur - Respiratory Respiratory: Clear bilaterally - Derm Derm: Normal color, Warm and dry - Extremities Extremities: No edema - Neuro Neuro: Alert and oriented X 3, No motor deficit, Normal speech Results - Vitals Vitals: Oxygen O2 Source Room air - Labs Labs: Laboratory Tests 01/16/24 14:23 Sodium 140 Potassium 3.9 Chloride 104 Carbon Dioxide 31 Anion Gap 5.0 L BUN 11 Creatinine 1.0 Estimated GFR (MDRD) 79 L Glucose 89 Calcium 9.8 Magnesium 1.9 Total Bilirubin 0.5 AST 18 ALT 27 Alkaline Phosphatase 60 Total Protein 7.6 Albumin 4.7 Globulin 2.9 Albumin/Globulin Ratio 1.6 Lipase 47 PD Medical Decision Making - ED course Complexity details: reviewed old records (pharmacy review shows the meds he states except that the trazodone had gotten refilled since 12/03/23 for 30 tabs. He would likely be out of these and when I asked, he said he thought he was still taking it, but could not be certain. ), reviewed results, re-evaluated patient (lacking the trazodone for perhaps a few weeks and the propranolol had not had refill in last 3 months, (other meds he lists have had recent enough refills that he should be on those or not run out for sure). Rather than adding new med per se, I am going to give Rx for the meds he should be on.) ED course: Rx for proproanolol that he said he though he was recntly still on and run out. He thought he still had trazodone at home, but last Rx from pharmacy was 12/03/23, so should be out the past 2 weeks. He is not sure if could be out. I will give Rx for these meds. He states he has Xanax enough and does not yuliya Rx. He can increase the trazodone to 75 mg if needed. To follow up with his prescribing provider. Departure - Departure Disposition: Home, Self Care Clinical Impression: Mood disorder, Bipolar 1 disorder, Insomnia Condition: Stable Record reviewed to determine appropriate education?: Yes Follow-Up: KIP PACHECO MD [Physician No Access] - Shantelle Mcdonald ARNP [Provider Admit Priv/Credential] - Prescriptions: traZODone [Desyrel] 50 - 100 mg PO HS PRN #30 tablet PRN Reason: Insomnia Propranolol HCl 20 mg PO DAILY #30 tablet Comments: On the medication refills list from [facility], I can see recent prescriptions filled for your lamotrigine, fluvoxamine, amlodipine. I did not see a prescription fill for your trazodone since November and it was for 30 tablets so I would assume that you are out and also the propranolol for a few months. I wrote prescriptions and sent them to [facility] for the propranolol and trazodone. I would not increase your trazodone from 50 mg to 75 or 100 in the short-term to help with sleep and mood. Follow-up with your psychiatric provider and primary care in the next week or 2- 4 reevaluating and refilling your medications. If you are out of these medications, it would make sense that your mood is off and you are sleep is off as well. Forms: PCP List Discharge Date/Time: 01/16/24 15:29
[2024-01-16] MEDS: PROPRANOLOL 10 MG TABLET PO STA (14:28)
[2024-01-16] MEDS: OLANZapine ODT 5 MG TABLET TL STA (14:28)
[2024-01-16 14:43] LABS: ALBUMIN 4.7 g/dL (3.2-5.5); ALBUMIN/GLOBULIN RATIO 1.6 (1.0-2.2); BILIRUBIN,TOTAL 0.5 mg/dL (0.2-1.0); CALCIUM 9.8 mg/dL (8.5-10.3); MAGNESIUM 1.9 mg/dL (1.7-2.3); POTASSIUM 3.9 mmol/L (3.5-4.5); TOTAL PROTEIN 7.6 g/dL (6.4-8.9)
[2024-01-16 15:33] VITALS: BP 133/94
== END 2024-01-16 15:29 | disposition home or self-care (01) ==
LOC: ED 11:58
DX: F31.89 Other bipolar disorder (principal); G47.00 Insomnia, unspecified
CPT/HCPCS: 36415; 80053; 83690; 83735; 99283; A9270

== ENCOUNTER 2024-01-24 18:39 | Emergency (ER) | payer MEDICAID ==
--- NOTE | 2024-01-24 19:21 | ED Physician Documentation ---
PD HPI MHE - Stated complaint Stated Complaint: MHE - Chief complaint Chief Complaint: MHE - History obtained from History obtained from: Patient - History of Present Illness Primary symptom: Self harm - cut Pain level max: 0 Pain level now: 0 - Additional information Additional information: Patient is a 48-year-old male who presents to the emergency department stating that he has a history of bipolar disorder. He states he is not suicidal or homicidal. He states that he was feeling angry this morning at work, he went home from work and took a Xanax and "smoked weed". He states that he felt more mellowed out but made 2-3 small cut umanzor on his left forearm. He states that his told him to come to the emergency department. Tetanus shot is up-to-date. He states he feels better now and does not feel the need to harm himself any further. He does not want to go to a psychiatric hospital or speak to a psychiatrist. He has an appointment with his primary care provider next week. Review of Systems Constitutional: denies: Fever, Chills GI: denies: Vomiting, Diarrhea : denies: Dysuria Psychiatric: denies: Depressed, Suicidal, Homicidal, Hallucinations, Delusions, Anxiety, Insomnia PD PAST MEDICAL HISTORY - Past Medical History Cardiovascular: Hypertension Respiratory: Asthma Neuro: None Endocrine/Autoimmune: None GI: None : Benign prostate hypertrophy HEENT: Other Psych: Anxiety, Bipolar disorder, ADD/ADHD, Obsessive compulsive disorder Musculoskeletal: Other Derm: None - Past Surgical History Past Surgical History: Yes General: Other Ortho: Carpal Tunnel surgery - Present Medications Home Medications: Ambulatory Orders Medication Instructions Recorded Confirmed lamoTRIgine [LaMICtal] 350 mg PO DAILY 09/10/13 10/22/23 lisinopriL [Zestril] 40 mg PO DAILY 09/10/13 10/22/23 Fluvoxamine Maleate 150 mg PO DAILY #30 tablet 06/24/18 10/22/23 Albuterol Sulf [Ventolin Hfa 1 - 2 puffs INH Q4HR PRN #1 inhaler 12/24/20 10/22/23 Inhaler] Propranolol ER [Inderal LA] 80 mg PO DAILY 12/02/21 10/22/23 Tamsulosin [Flomax] 0.4 mg PO DAILY 12/02/21 10/22/23 OLANZapine [Olanzapine] 10 mg PO QPM #60 tablet 02/24/23 10/22/23 Ibuprofen [Motrin] 800 mg PO Q8H PRN #14 tablet 10/18/23 10/22/23 Propranolol HCl 20 mg PO DAILY #30 tablet 01/16/24 amLODIPine [Norvasc] 10 mg PO DAILY 01/16/24 traZODone [Desyrel] 50 - 100 mg PO HS PRN #30 tablet 01/16/24 - Allergies Allergies/Adverse Reactions: Allergies Allergy/AdvReac Type Severity Reaction Status Date / Time aripiprazole [From Abilify] AdvReac Unknown Unknown Verified 01/24/24 19:16 bupropion HCl * AdvReac Unknown Unknown Verified 01/24/24 19:16 [From Wellbutrin] lithium [[place]] AdvReac Unknown Unknown Verified 01/24/24 19:16 gabapentin AdvReac Unknown Verified 01/24/24 19:16 - Social History Does the pt smoke?: No Smoking Status: Never smoker Does the pt drink ETOH?: No Does the pt have substance abuse?: No Substance Use and Type: Marijuana - Immunizations Immunizations are current?: Yes - POLST Patient has POLST: No PD ED PE NORMAL - Vitals Vital signs reviewed: Yes - General General: Alert and oriented X 3, No acute distress - HEENT HEENT: PERRL, Moist mucous membranes - Neck Neck: Supple, no meningeal sign - Cardiac Cardiac: RRR, Strong equal pulses - Respiratory Respiratory: No respiratory distress, Clear bilaterally - Abdomen Abdomen: Soft, Non tender, Non distended - Derm Derm: Warm and dry - Extremities Extremities: Other (3 small superficial lacerations to the dorsum of the left f orearm. No active bleeding. No muscle damage. No ligament damage. Neurovascular intact. No lacerations to repair) - Neuro Neuro: Alert and oriented X 3 - Psych Psych: Normal mood, Normal affect Results - Vitals Vitals: Vital Signs - 24 hr 01/24/24 18:47 Temperature 36.2 C L Heart Rate 60 Respiratory 18 Rate Blood Pressure 142/86 H O2 Saturation 98 Oxygen O2 Source Room air PD Medical Decision Making - ED course Complexity details: considered differential, d/w patient ED course: 48-year-old male presents after making 3 small lacerations to his left arm while he was upset earlier today. No active bleeding. The lacerations are very superficial. Do not require repair. He is not suicidal or homicidal. He does not feel manic. He states he is not having insomnia. He states he is not spending money. He states he has been manic before and does not feel like he is manic now. Is not having hallucinations. No command hallucinations. Does not want to see a psychiatrist today. Does not want to go to a psychiatric hospital. No indication for involuntary treatment. He is able to contract for safety. He states he would not harm himself because he has children. He states he would not harm his children or his coworkers. He has not made any threats to anyone today. Patient will be given the crisis line information, can call and request DCR or mobile crisis outreach team evaluation as needed. Patient counseled regarding signs and symptoms for which I believe and urgent re- evaluation would be necessary. Patient with good understanding of and agreement to plan and is comfortable going home at this time This document was made in part using voice recognition software. While efforts are made to proofread this document, sound alike and grammatical errors may occur. Departure - Departure Disposition: 01 Home, Self Care Clinical Impression: Bipolar 1 disorder Condition: Good Instructions: ED Manic Depression Follow-Up: Shantelle Mcdonald ARNP [Provider Admit Priv/Credential] - Comments: Please follow-up with your doctor next week as scheduled. Please return if you worsen. If you feel like you are escalating at home or beginning to feel out of control, you can call the crisis line and request a mobile crisis outreach team or DCR to come to your home and help you. And request a mobile crisis outreach team or DCR to come to your home and help you. Your can also call this number and request the same. Please return if you are feeling suicidal or homicidal. If you are having any thoughts that you do not want to live, thoughts of hurting yourself, or thoughts of hurting anyone else, please call 911, the crisis line at [phone], or go to your nearest emergency department. Crisis Line and is available to talk to someone [email or web address] is also available to chat with someone online if you prefer. There are also many resources on this website and apps for your phone to help with your mental health You can also text the word START to [phone] to chat with someome via text. Forms: PCP List
[2024-01-24 19:31] VITALS: BP 142/86; O2SAT 98
== END 2024-01-24 19:41 | disposition home or self-care (01) ==
LOC: ED 18:39
DX: F31.9 Bipolar disorder, unspecified (principal); S51.812A Laceration without foreign body of left forearm, initial encounter; X78.9XXA Intentional self-harm by unspecified sharp object, initial encounter
CPT/HCPCS: 99284

== ENCOUNTER 2024-02-27 19:22 | Emergency (ER) | payer MEDICAID ==
[2024-02-27 19:30] VITALS: O2SAT 97
[2024-02-27 19:43] VITALS: BP 137/101
--- NOTE | 2024-02-27 20:01 | ED Physician Documentation ---
PD HPI MHE - Stated complaint Stated Complaint: MHE - Chief complaint Chief Complaint: MHE - History obtained from History obtained from: Patient, EMS - Additional information Additional information: 48-year-old man with history of bipolar disorder presents with generalized malaise for the past 2 years, worsening over the past few days with sensations of anger close to the surface, and self-reported manic behavior although patient is nonspecific. He does state that he had multiple medication changes during a physician visit in January at the [facility] where he normally goes. He stopped taking Xanax, trazodone, increased his Lamictal dosage to 400 mg, decreased his fluvoxamine to 100 mg, started quetiapine 50 mg daily with intent to transition to twice daily (though he has not yet done so). Patient states that he had been taking advantage of [place] [facility] but then became ill recently and dropped off. He is not currently seeing a therapist. PCP is Dr. Mcdonald. heath si/nd/josy. PD PAST MEDICAL HISTORY - Past Medical History Past Medical History: Yes Cardiovascular: Hypertension Respiratory: Asthma Neuro: None Endocrine/Autoimmune: None GI: None : Benign prostate hypertrophy HEENT: Other Psych: Anxiety, Bipolar disorder, ADD/ADHD, Obsessive compulsive disorder Musculoskeletal: Other Derm: None - Past Surgical History Past Surgical History: Yes General: Other Ortho: Carpal Tunnel surgery - Present Medications Home Medications: Ambulatory Orders Medication Instructions Recorded Confirmed lamoTRIgine [LaMICtal] 350 mg PO DAILY 09/10/13 10/22/23 lisinopriL [Zestril] 40 mg PO DAILY 09/10/13 10/22/23 Fluvoxamine Maleate 150 mg PO DAILY #30 tablet 06/24/18 10/22/23 Albuterol Sulf [Ventolin Hfa 1 - 2 puffs INH Q4HR PRN #1 inhaler 12/24/20 10/22/23 Inhaler] Propranolol ER [Inderal LA] 80 mg PO DAILY 12/02/21 10/22/23 Tamsulosin [Flomax] 0.4 mg PO DAILY 12/02/21 10/22/23 OLANZapine [Olanzapine] 10 mg PO QPM #60 tablet 02/24/23 10/22/23 Ibuprofen [Motrin] 800 mg PO Q8H PRN #14 tablet 10/18/23 10/22/23 Propranolol HCl 20 mg PO DAILY #30 tablet 01/16/24 amLODIPine [Norvasc] 10 mg PO DAILY 01/16/24 traZODone [Desyrel] 50 - 100 mg PO HS PRN #30 tablet 01/16/24 - Allergies Allergies/Adverse Reactions: Allergies Allergy/AdvReac Type Severity Reaction Status Date / Time aripiprazole [From Abilify] AdvReac Unknown Unknown Verified 02/27/24 19:25 bupropion HCl * AdvReac Unknown Unknown Verified 02/27/24 19:25 [From Wellbutrin] lithium [[place]] AdvReac Unknown Unknown Verified 02/27/24 19:25 gabapentin AdvReac Unknown Verified 02/27/24 19:25 - Social History Does the pt smoke?: No Smoking Status: Never smoker Does the pt drink ETOH?: No Does the pt have substance abuse?: Yes - Immunizations Immunizations are current?: Yes - POLST Patient has POLST: No PD ED PE NORMAL - Vitals Vital signs reviewed: Yes - General General: Alert and oriented X 3, No acute distress, Well developed/nourished - HEENT HEENT: Atraumatic, PERRL, EOMI - Neck Neck: Supple, no meningeal sign - Cardiac Cardiac: RRR - Respiratory Respiratory: No respiratory distress, Clear bilaterally - Abdomen Abdomen: Non tender, Non distended - Derm Derm: Normal color, Warm and dry - Extremities Extremities: No deformity - Neuro Neuro: Alert and oriented X 3 - Psych Psych: Other (mood described as "angry" and "manic" though he voices no intent to harm. ) Results - Vitals Vitals: Vital Signs - 24 hr 02/27/24 02/27/24 19:25 19:36 Temperature 36.8 C Heart Rate 60 61 Respiratory 16 20 Rate Blood Pressure 142/89 H 137/101 H O2 Saturation 97 97 Oxygen O2 Source Room air - EKG (time done) 0 EKG releavant findings:: EKG personally interpreted by author of this note. Relevant findings are: Rate: Rate (enter#) (58) Rhythm: Sinus bradycardia Intervals: Other (incomplete RBBB) Ischemia: Normal ST segments Compare to prior EKG: Unchanged from prior EKG - Labs Labs: Laboratory Tests 02/27/24 02/27/24 22:18 22:18 WBC 8.4 RBC 4.99 Hgb 15.1 Hct 45.3 MCV 90.8 MCH 30.3 MCHC 33.3 RDW 12.5 Plt Count 240 MPV 9.5 Neut # (Auto) 5.0 Lymph # (Auto) 2.4 [place] # (Auto) 0.6 Eos # (Auto) 0.3 Baso # (Auto) 0.0 Absolute Nucleated RBC 0.00 Nucleated RBC % 0.0 Magnesium 2.0 PD Medical Decision Making - ED course ED course: 48yM presents for mental health evaluation, stating he has been struggling with his bipolar disorder X 2-3 days and had multiple recent medication changes last month. He does not appear to present an acute danger to self or others but I would like telehealth evaluation for recommendations. Telehealth discussed with patient and he opted for inpatient treatment. Telepsych will work on placement. Departure - Departure Disposition: 65 Psych Hosp/Unit DC/Xfer Clinical Impression: Bipolar disorder Condition: Stable Instructions: Bipolar Disorder Forms: PCP List
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
[2024-02-27 22:22] LABS: BASOPHILS % (AUTO) 0.5 %; EOSINOPHILS # (AUTO) 0.3 10^3/uL (0.0-0.7); EOSINOPHILS % (AUTO) 3.5 %; HCT - HEMATOCRIT 45.3 % (42.0-52.0); HGB - HEMOGLOBIN 15.1 g/dL (14.0-18.0); LYMPHOCYTES # (AUTO) 2.4 10^3/uL (1.5-3.5); MEAN CORPUSCULAR HEMOGLOBIN 30.3 pg (27.0-31.0); MEAN CORPUSCULAR HGB CONC 33.3 g/dL (32.0-36.0); MEAN CORPUSCULAR VOLUME 90.8 fL (80.0-94.0); MEAN PLATELET VOLUME 9.5 fL (7.4-11.4); MONOCYTES # (AUTO) 0.6 10^3/uL (0.0-1.0); MONOCYTES % (AUTO) 7.3 %; NEUTROPHILS % (AUTO) 59.5 %; PLT - PLATELET COUNT 240 10^3/uL (130-450); RED BLOOD COUNT 4.99 10^6/uL (4.70-6.10); RED CELL DISTRIBUTION WIDTH 12.5 % (12.0-15.0); WHITE BLOOD COUNT 8.4 x10^3/uL (4.8-10.8)
[2024-02-27 22:49] LABS: ACETAMINOPHEN 0.1 ug/mL; ALBUMIN 4.5 g/dL (3.2-5.5); ALBUMIN/GLOBULIN RATIO 1.4 (1.0-2.2); ALKALINE PHOSPHATASE 68 IU/L (42-121); ALT ALANINE AMINOTRANSFERASE 19 IU/L (10-60); AST ASPARTATE AMINOTRANSFERASE 18 IU/L (10-42); BILIRUBIN,TOTAL 0.5 mg/dL (0.2-1.0); BUN - BLOOD UREA NITROGEN 17 mg/dL (6-20); CALCIUM 9.9 mg/dL (8.5-10.3); CARBON DIOXIDE - CO2 28 mmol/L (21-32); CHLORIDE 104 mmol/L (101-111); CK- CREATINE KINASE 301 IU/L (30-223); CREATININE 1.2 mg/dL (0.6-1.3); ETOH - ETHANOL < 10.0 mg/dL; GFR - MDRD 64 (>89); GLUCOSE 77 mg/dL (74-104); LIPASE 46 U/L (11-82); POTASSIUM 3.3 mmol/L (3.5-4.5); SODIUM 140 mmol/L (135-145); TOTAL PROTEIN 7.7 g/dL (6.4-8.9)
[2024-02-27 22:50] LABS: BILIRUBIN,URINE NEGATIVE (NEGATIVE); GLUCOSE, URINE (UA) NEGATIVE (NEGATIVE); KETONES,URINE (UA) NEGATIVE (NEGATIVE); LEUKOCYTE ESTERASE, URINE NEGATIVE (NEGATIVE); NITRITE,URINE NEGATIVE (NEGATIVE); OCCULT BLOOD,URINE NEGATIVE (NEGATIVE); PROTEIN,URINE NEGATIVE (NEGATIVE); UROBILINOGEN,URINE 0.2 (NORMAL) E.U./dL (NORMAL)
[2024-02-27 22:51] LABS: CLARITY,URINE CLEAR (CLEAR)
[2024-02-27 22:52] LABS: SALICYLATE < 1.5 mg/dL
[2024-02-27 22:59] LABS: AMPHETAMINE SCREEN,URINE NEGATIVE (NEGATIVE); BARBITURATE SCREEN,UR NEGATIVE (NEGATIVE); BENZODIAZEPINES SCREEN, URINE NEGATIVE (NEGATIVE); BUPRENORPHINE SCREEN, URINE NEGATIVE (NEGATIVE); COCAINE SCREEN URINE NEGATIVE (NEGATIVE); METHADONE SCREEN, URINE NEGATIVE (NEGATIVE); METHAMPHETAMINES SCREEN, URINE NEGATIVE (NEGATIVE); OPIATE SCREEN, URINE NEGATIVE (NEGATIVE); OXYCODONE SCREEN, URINE NEGATIVE (NEGATIVE); THC CANNABINOID SCREEN, URINE POSITIVE (NEGATIVE); TRICYCLIC ANTIDEPRESSANT,URINE NEGATIVE (NEGATIVE)
[2024-02-27 23:02] LABS: THYROID STIMULATING HORMONE 3.32 uIU/mL (0.34-5.60)
[2024-02-28] MEDS: QUEtiapine 25 MG TABLET PO STA (01:14)
[2024-02-28] MEDS: LORazepam 1 MG TABLET PO STA (01:14)
[2024-02-28] MEDS: lamoTRIgine 100 MG TABLET PO STA (01:15)
== END 2024-02-28 04:40 ==
LOC: ED 19:22
DX: F31.9 Bipolar disorder, unspecified (principal); I10 Essential (primary) hypertension; J45.909 Unspecified asthma, uncomplicated; F41.9 Anxiety disorder, unspecified; I45.10 Unspecified right bundle-branch block; Z79.899 Other long term (current) drug therapy
CPT/HCPCS: 36415; 80053; 80143; 80179; 80306; 81003; 82077; 82550; 83690; 83735; 84443; 85025; 87635; 90834; 93005; 99284; 99285; A9270; J8499; Q3014; 81001; 87086